=== PATIENT | female | born 1985 | race Caucasian/White ===

== ENCOUNTER → 2020-06-24 11:28 | Outpatient (BNVA) | payer OTHER, SELFPAY | PROVIDERS: Family Provider Family Medicine; Visit Provider Nurse Practitioner Family | DX: Z20.828 Contact with and (suspected) exposure to other viral communicable diseases (principal); J06.9 Acute upper respiratory infection, unspecified | CPT/HCPCS: 87635 ==

== ENCOUNTER 2023-07-08 23:04 | Emergency (ER) | payer OTHER, SELFPAY ==
[2023-07-08 23:29] VITALS: BP 160/81; PULSE 101; RESP 16; BMI 25.0
[2023-07-08 23:41] VITALS: BP 160/81; PULSE 101; RESP 21; O2SAT 98
--- NOTE | 2023-07-08 23:50 | ED_ITS ---
HPI - Abdominal Pain 2 General: Chief Complaint: Abdominal Pain Stated Complaint: abdomen pain, back pain Time Seen by Provider: 07/08/23 23:30 Source: patient and family Mode of arrival: ambulatory Limitations: no limitations History of Present Illness: Patient presents emergency department today for evaluation treatment of right- sided abdominal pain and diarrhea for several days. Patient states the last couple of days she has had multiple episodes of brown loose stool. She complains of pain in the right lower quadrant which she states is sharp in nature. She also reports she feels the pain in her abdomen radiating to her back. Patient has not vomited. She is unaware of any fevers. No others at home are similarly ill. Patient still has her appendix and right ovary. She denies any urinary symptoms including dysuria or hematuria. No issues with urine stream. No vaginal discharge or bleeding. Patient states she did take some ibuprofen today as well as a [place] for her pain. Review of Systems 2 General: Reports: 10 or more systems reviewed and unremarkable except in HPI and below Physical Exam 2 Const: COMMON NORMALS: no acute distress, patient oriented x3 and alert HENMT: COMMON NORMALS: normocephalic, atraumatic, hearing grossly normal bilaterally and moist oral mucous membranes HEAD & SCALP: normocephalic and atraumatic Eye: COMMON NORMALS: Equal, round and reactive pupils present, EOMs intact bilaterally and conjunctivae normal CONJUNCTIVA: Yes conjunctivae normal P UPIL: Yes Equal, round and reactive pupils present Neck/C-Spine: COMMON NORMALS: full ROM and no JVD Lymph: LYMPHATIC: no lymphadenopathy noted Resp: COMMON NORMALS: normal respiratory effort, No retractions, No use of accessory muscles and clear to auscultation bilaterally AUSCULTATION: clear to auscultation bilaterally Cardio: COMMON NORMALS: no JVD, regular rate and regular rhythm RATE: r egular rate RHYTHM: regular rhythm GI: OTHER: Hyperactive bowel sounds throughout. Patient is actually tender in the right upper quadrant without specific tenderness in her right lower quadrant. Abdomen is still soft. : COMMON NORMALS: Yes no CVA tenderness BLADDER/KIDNEY EXAM: Yes no CVA tenderness Back/Pelvis: COMMON NORMALS: no CVA tenderness, no thoracic nor lumbar tenderness and thoraco-lumbar ROM normal Extremity: COMMON NORMALS: normal to inspection, full ROM and capillary refill normal NARRATIVE EXTREMITY EXAM: Patient is able to stand and sit without signs of significant distress. Neuro: COMMON NORMALS: patient oriented x3 SENSORIUM/ORIENTATION: Yes alert Psych: COMMON NORMALS: mental status grossly normal, Normal thought process present, cooperative, normal affect and activity/motor behavior normal T HOUGHT PROCESS: Normal thought process present Skin: COMMON NORMALS: no rashes or lesions noted and no wounds GENERAL SKIN EXAM: no rashes or lesions noted Course 2 Vital Signs: Vital signs: Vital Signs Pulse Rate 94 07/09/23 01:20 Respiratory Rate 18 07/09/23 01:21 Blood Pressure 159/97 07/09/23 01:20 Pulse Oximetry 99 07/09/23 01:21 Oxygen Delivery Me thod Room Air 07/09/23 01:20 MDM - Abdominal Pain Medical Decision Making Lab work today is generally unremarkable. Patient does have some findings of various abnormalities in her urine though none specifically indicating concerns for urinary tract infection. We did proceed on with a CT examination as the patient's workup and physical examination are still relatively vague. There are still potential for appendicitis as a differential so CT over ultrasound was chosen. CT examination was concerning for findings of right-sided hydronephrosis and hydroureter. There is a 6-1/2 cm x 5-1/2 cm cystic structure on the right ovary. It is very likely that this is causing the hydroureter and hydronephrosis. Patient admits she has not seen an SOAKING TANK WORKER in quite some time. We did place an urgent referral through case management for an OB follow-up due to its size and the amount of pain patient is having. Also mention that it is likely causing hydroureter and hydronephrosis on her CT scan. Patient is given a short course of pain medication while we are waiting for follow-up with the SOAKING TANK WORKER. However, patient was given return precautions for any change or worsening in condition including new onset fever, vomiting without ability to tolerate her medications or fluids or severe worsening of her pain. Patient has been verbalized understanding and agreement to treatment plan. Differential Diagnosis Likely abdominal pain; Unlikely acute appendicitis, calculus of kidney, diverticulitis, gastroenteritis, pancreatitis or small bowel obstruction Lab Data 07/08/23 23:49 07/08/23 23:49 Labs/Radiology: Radiology Impressions Abdomen/Pelvis CT 07/09/23 00:14 IMPRESSION: 1. Mild right-sided hydronephrosis and hydroureter down to the level of the pelvis. No distal stone identified. 2. There is a 6.5 x 5.5 cm cystic structure in the right ovary, incompletely assessed on this examination. It is unclear whether this the source of the ureteral obstruction on the right. Neither this cyst nor the hydronephrosis or hydroureter were present on the prior abdominal CT dated 02/05/2019. 3. No bowel obstruction or inflammatory process associated with the bowel. 4. No free air or significant free fluid in the abdomen or pelvis. 5. The appendix images normally. Laboratory Results WBC 9.21 10^3/uL (3.29-11.43) 07/08/23 23:49 RBC 5.43 10^6/uL (3.85-5.65) 07/08/23 23:49 Hgb 15.20 g/dL (11.27-16.99) 07/08/23 23:49 Hct 45.3 % (36-47) 07/08/23 23:49 MCV 83.4 fl (85-98) L 07/08/23 23:49 MCH 28.0 pg (27-33) 07/08/23 23:49 MCHC 33.6 g/dL (30-55) 07/08/23 23:49 RDW 12.0 % (12.1-15.1) L 07/08/23 23:49 Plt Count 271 10^3/cmm (157-399) 07/08/23 23:49 MPV 10.5 fL (7.4-10.4) H 07/08/23 23:49 Neut % (Auto) 60.3 % 07/08/23 23:49 Lymph % (Auto) 28.3 % 07/08/23 23:49 [place] % (Auto) 7.8 % 07/08/23 23:49 Eos % (Auto) 2.7 % 07/08/23 23:49 Baso % (Auto) 0.8 % 07/08/23 23:49 Neut # (Auto) 5.55 10^3/uL (1.8-7.7) 07/08/23 23:49 Lymph # (Auto) 2.6 10^3/uL (0.8-4.8) 07/08/23 23:49 [place] # (Auto) 0.7 10^3/uL (0.2-0.9) 07/08/23 23:49 Eos # (Auto) 0.3 10^3/uL (0.0-0.8) 07/08/23 23:49 Baso # (Auto) 0.1 10^3/uL (0.0-0.1) 07/08/23 23:49 Nucleated RBC % (auto) 0 % 07/08/23 23:49 Nucleated RBCs # 0.0 /100WBC 07/08/23 23:49 Sodium 139 mmol/L (136-145) 07/08/23 23:49 Potassium 4.0 mmol/L (3.5-5.1) 07/08/23 23:49 Chloride 103 mmol/L (98-107) 07/08/23 23:49 Carbon Dioxide 25 mmol/L (22-29) 07/08/23 23:49 Anion Gap 15.0 (5-19) 07/08/23 23:49 BUN 15 mg/dL (6-20) 07/08/23 23:49 Creatinine 0.6 mg/dL (0.5-0.9) 07/08/23 23:49 GFR Calculation 111.9 mL/min (90-130) 07/08/23 23:49 Glucose 103 mg/dL (65-115) 07/08/23 23:49 Calculated Osmolality 289 mOsm/kg (285-295) 07/08/23 23:49 Calcium 9.8 mg/dL (8.5-10.5) 07/08/23 23:49 Total Bilirubin 0.4 mg/dL (0.15-1.2) 07/08/23 23:49 AST 19 U/L (0-32) 07/08/23 23:49 ALT 20 U/L (0-33) 07/08/23 23:49 Alkaline Phosphatase 98 U/L (35-105) 07/08/23 23:49 Total Protein 7.7 g/dL (6.6-8.7) 07/08/23 23:49 Albumin 4.6 g/dL (3.5-5.2) 07/08/23 23:49 Globulin 3.1 g/dL (1.3-4.6) 07/08/23 23:49 Lipase 45 U/L (13-60) 07/08/23 23:49 HCG, Qual Negative (Negative) 07/08/23 23:49 Urine Color Yellow (Yellow) 07/08/23 23:46 Urine Appearance Sl hazy (CLEAR) A 07/08/23 23:46 Urine pH 6 (5-7) 07/08/23 23:46 Ur Specific [place] 1.020 (1.005-1.030) 07/08/23 23:46 Urine Protein Neg (Negative) 07/08/23 23:46 Urine Glucose (UA) Norm (Normal) 07/08/23 23:46 Urine Ketones 1+ (Negative) H 07/08/23 23:46 Urine Blood Trace (Negative) H 07/08/23 23:46 Urine Nitrate Negative (Negative) 07/08/23 23:46 Urine Bilirubin Neg (Negative) 07/08/23 23:46 Urine Urobilinogen 1 mg/dL (Negative) H 07/08/23 23:46 Ur Leukocyte Esterase Negative (Negative) 07/08/23 23:46 Urine RBC 0-4 /hpf (0-2) H 07/08/23 23:46 Urine WBC 0-4 /hpf (0-5) H 07/08/23 23:46 Ur Squamous Epith Cells 5-10 /hpf (0-5) H 07/08/23 23:46 Amorphous Sediment Not Reportable 07/08/23 23:46 Urine Bacteria 1+ /hpf (NONE) H 07/08/23 23:46 Urine Mucus 1+ /hpf 07/08/23 23:46 All radiology interpretation(s) finalized by discharge Discharge Plan Discharge Patient Disposition: Home Clinical Impression: Cyst of right ovary, Hydronephrosis, Hydroureter on right Condition: Stable Prescriptions: New hydrocodone-acetaminophen 5-325 mg tablet 1 tab PO Q6H PRN (Reason: pain) Qty: 14 0RF Discharge Orders: Discharge ED (Routine); Ordered 07/09/23 Ordered By: Anuel Jimenez Referrals: Roman Edmondson MD [Physician] - 1-3 days Discharge Diet: Advance as tolerated Discharge Activity: Resume usual activity Patient Instructions: Ovarian Cyst (ED), Opioid Safety Coding Level of Care Code ED Alarm Security Or Surveillance Monitor for Chg Karla
[2023-07-08 23:55] LABS: Basophils # 0.1 10^3/uL (0.0-0.1); Basophils % 0.8 %; Eosinophils # 0.3 10^3/uL (0.0-0.8); Eosinophils % 2.7 %; Hematocrit 45.3 % (36-47); Lymphocytes # 2.6 10^3/uL (0.8-4.8); Lymphocytes % 28.3 %; Mean Corpuscular HGB Conc 33.6 g/dL (30-55); Mean Corpuscular Volume 83.4 fl (85-98); Mean Platelet Volume 10.5 fL (7.4-10.4); Monocytes # 0.7 10^3/uL (0.2-0.9); Monocytes % 7.8 %; Neutrophils # 5.55 10^3/uL (1.8-7.7); Neutrophils % 60.3 %; Nucleated Red Blood Cells % 0 %; Platelet Count 271 10^3/cmm (157-399); Red Blood Count 5.43 10^6/uL (3.85-5.65); White Blood Count 9.21 10^3/uL (3.29-11.43)
[2023-07-09 00:04] LABS: Add Urine Microscopic? YES
[2023-07-09 00:05] LABS: Bacteria Urine 1+ /hpf; Bilirubin Urine Neg (Negative); Blood Urine Trace (Negative); Glucose Urine UA Norm (Normal); Ketones Urine 1+ (Negative); Leukocyte Esterase Urine Negative (Negative); Mucus Urine 1+ /hpf; Nitrate Urine Negative (Negative); Protein Urine Neg (Negative); RBC Urine 0-4 /hpf (0-2); Urine Appearance SL Hazy (CLEAR); Urine Color Yellow (Yellow); Urobilinogen Urine 1 mg/dL (Negative); WBC Urine 0-4 /hpf (0-5); pH Urine 6 (5-7)
[2023-07-09 00:06] VITALS: BP 160/81; PULSE 99
[2023-07-09 00:10] LABS: Alanine Aminotransferase 20 U/L (0-33); Albumin Level 4.6 g/dL (3.5-5.2); Alkaline Phosphatase 98 U/L (35-105); Aspartate Amino Transferase 19 U/L (0-32); Blood Urea Nitrogen 15 mg/dL (6-20); Calcium 9.8 mg/dL (8.5-10.5); Carbon Dioxide 25 mmol/L (22-29); Chloride 103 mmol/L (98-107); Creatinine Clr Calc Pharmacy 123.2577; Globulin 3.1 g/dL (1.3-4.6); Glomerular Filtration Rate 111.9 mL/min (90-130); Glucose 103 mg/dL (65-115); Lipase 45 U/L (13-60); Osmolality Calculated 289 mOsm/kg (285-295); Sodium 139 mmol/L (136-145); Total Bilirubin 0.4 mg/dL (0.15-1.2); Total Protein 7.7 g/dL (6.6-8.7)
[2023-07-09 00:11] LABS: HCG, Serum Qual Negative (Negative)
--- NOTE | 2023-07-09 00:14 | CTR_ITS ---
PROCEDURE INFORMATION: Exam: CT Abdomen And Pelvis With Contrast Exam date and time: 07/09/2023 12:35 AM Age: 38 years old Clinical indication: Abdominal pain; Localized; Right; Patient HX: RT sided abd pain with diarrhea. Positive for urobili on ua. ; Additional info: RT abdominal pain, diarrhea, pain in RT abdomen, urobili in ua, lfts wnl TECHNIQUE: Imaging protocol: Computed tomography of the abdomen and pelvis with contrast. Radiation optimization: All CT scans at this facility use at least one of these dose optimization techniques: automated exposure control; mA and/or kV adjustment per patient size (includes targeted exams where dose is matched to clinical indication); or iterative reconstruction. Contrast material: OMNI 350; Contrast volume: 100 ml; Contrast route: INTRAVENOUS (IV); COMPARISON: CT abdomen pelvis wo con [id number] 02/05/2019 5:02 PM RADIATION DOSE METRICS: Total DLP (mGy-cm): 647.11 FINDINGS: Liver: Normal. No mass. Gallbladder and bile ducts: Normal. No calcified stones. No ductal dilation. Pancreas: Normal. No ductal dilation. Spleen: Normal. No splenomegaly. Adrenal glands: Normal. No mass. Kidneys and ureters: Mild right-sided hydronephrosis and hydroureter down to the level of the pelvis. No distal stone identified. Stomach and bowel: Unremarkable. No obstruction. No mucosal thickening. Appendix: No evidence of appendicitis. Intraperitoneal space: Unremarkable. No free air. No significant fluid collection. Vasculature: Unremarkable. No abdominal aortic aneurysm. Lymph nodes: Unremarkable. No enlarged lymph nodes. Urinary bladder: Unremarkable as visualized. Reproductive: There is a 6.5 x 5.5 cm cystic structure in the right ovary, incompletely assessed on this examination. It is unclear whether this the source of the ureteral obstruction on the right. Bones/joints: Unremarkable. No acute fracture. Soft tissues: Unremarkable. CT/CT abdomen pelvis w con* [id number] IMPRESSION: 1. Mild right-sided hydronephrosis and hydroureter down to the level of the pelvis. No distal stone identified. 2. There is a 6.5 x 5.5 cm cystic structure in the right ovary, incompletely assessed on this examination. It is unclear whether this the source of the ureteral obstruction on the right. Neither this cyst nor the hydronephrosis or hydroureter were present on the prior abdominal CT dated 02/05/2019. 3. No bowel obstruction or inflammatory process associated with the bowel. 4. No free air or significant free fluid in the abdomen or pelvis. 5. The appendix images normally.
[2023-07-09] MEDS: iohexol 350 mg/mL 500 mL Btl (per mL) IV (00:38)
--- NOTE | 2023-07-09 00:53 | PC.NURSE ---
check writer salesperson gave report to Lidia PETTIT at [id number] patient stable no current complaints or concerns.
[2023-07-09 01:20] VITALS: BP 159/97; PULSE 94; O2SAT 99
[2023-07-09 01:21] VITALS: RESP 18; O2SAT 99
[2023-07-09] MEDS: oxyCODONE-APAP 5-325 mg Tablet 1 TAB PO (01:21)
[2023-07-09 01:42] VITALS: BP 152/78; PULSE 86; O2SAT 97
--- NOTE | 2023-07-13 11:16 | DCPLANNER ---
Message sent to OBLADARIUSN - RT ovarian cyst-hydronephrosis/ ureter
== END 2023-07-09 01:42 | disposition home or self-care (01) ==
PROVIDERS: Emergency Medicine; Emergency Provider Physician Assistant
DX: N83.201 Unspecified ovarian cyst, right side (principal); N13.30 Unspecified hydronephrosis; N13.4 Hydroureter
CPT/HCPCS: 74177; 80053; 81001; 81003; 83690; 84703; 85025; 99285; Q9967

== ENCOUNTER 2023-07-09 17:58 | Observation (INO) | payer OTHER, SELFPAY ==
[2023-07-09 18:01] VITALS: BP 158/108; PULSE 84; RESP 16; TEMP 36.9; O2SAT 97
--- NOTE | 2023-07-09 18:08 | USR_ITS ---
PROCEDURE INFORMATION: Exam: US Nonobstetric Pelvis; Complete Exam date and time: 07/09/2023 6:38 PM Age: 38 years old Clinical indication: Pelvic pain; Additional info: Ovarian cyst TECHNIQUE: Imaging protocol: Transabdominal pelvic nonobstetric ultrasound. Complete exam. Real time ultrasound with image documentation. COMPARISON: CT abdomen pelvis w con* [id number] 07/09/2023 12:35 AM FINDINGS: Uterus: Retroverted uterus measuring 8.2 x 4.1 x 4.9 cm. Endometrium is unremarkable measuring 10 mm in thickness. Right ovary/adnexa: There is a 6.3 x 6.3 x 5.6 cm simple appearing right adnexal cyst. The right ovary measures approximately 1.4 x 1.1 x 2.1 cm with flow appreciated on transabdominal approach. Left ovary/adnexa: The left ovary measures 2.7 x 2.3 x 2.7 cm. Flow is visualized. Intraperitoneal space: No intraperitoneal fluid. US/US pelv w/transvag [id number] IMPRESSION: 1. Large 6.3 cm simple appearing right adnexal cyst. Follow-up industrial relations manager evaluation is recommended. Follow-up pelvic sonography in 12 months is recommended.
[2023-07-09 18:55] LABS: Alanine Aminotransferase 20 U/L (0-33); Albumin Level 4.3 g/dL (3.5-5.2); Alkaline Phosphatase 86 U/L (35-105); Aspartate Amino Transferase 18 U/L (0-32); Blood Urea Nitrogen 12 mg/dL (6-20); Calcium 9.4 mg/dL (8.5-10.5); Carbon Dioxide 23 mmol/L (22-29); Chloride 106 mmol/L (98-107); Glomerular Filtration Rate 80.3 mL/min (90-130); Glucose 116 mg/dL (65-115); Osmolality Calculated 291 mOsm/kg (285-295); Sodium 140 mmol/L (136-145); Total Bilirubin 0.4 mg/dL (0.15-1.2); Total Protein 7.3 g/dL (6.6-8.7)
--- NOTE | 2023-07-09 18:56 | ED_ITS ---
HPI - Abdominal Pain 2 General: Chief Complaint: Abdominal Pain Stated Complaint: dr edmondson sent cyst on ovary R side Time Seen by Provider: 07/09/23 18:14 Source: patient Mode of arrival: ambulatory Limitations: no limitations History of Present Illness: Patient presents emergency department today for evaluation treatment of continued right-sided abdominal pain. I personally saw and evaluated this patient yesterday for similar symptoms. Patient was found to have a large right ovarian cyst with some hydronephrosis and hydroureter. Patient was discharged with pain medication and referral for follow-up with OB. However, patient states that the pain medication is not helping her today and she continues to have right-sided abdominal pain. She has not been vomiting but states she has not eaten very much today. She has not had any change in urinary habits or had any difficulty with urination. Patient reports last hydrocodone was approximately 2 hours ago. Patient's called the hospital today and spoke with Dr. Edmondson-the CONTRACT SERVICEMAN on-call. He recommended they come to the emergency department. Review of Systems 2 General: Reports: 10 or more systems reviewed and unremarkable except in HPI and below Physical Exam 2 Const: COMMON NORMALS: no acute distress, patient oriented x3 and alert O THER: Patient is pleasant, social. She is answering her own history in the room. HENMT: COMMON NORMALS: normocephalic, atraumatic, hearing grossly normal bilaterally and moist oral mucous membranes HEAD & SCALP: normocephalic and atraumatic Eye: COMMON NORMALS: Equal, round and reactive pupils present, EOMs intact bilaterally and conjunctivae normal CONJUNCTIVA: Yes conjunctivae normal P UPIL: Yes Equal, round and reactive pupils present Neck/C-Spine: COMMON NORMALS: full ROM Lymph: LYMPHATIC: no lymphadenopathy noted Resp: COMMON NORMALS: normal respiratory effort, No retractions and No use of accessory muscles Cardio: COMMON NORMALS: regular rate (On monitor) RATE: regular rate (On monitor) GI: OTHER: GI examination not performed at this time as patient is currently in the middle of her ultrasound. Back/Pelvis: COMMON NORMALS: thoraco-lumbar ROM normal Extremity: COMMON NORMALS: normal to inspection, full ROM and capillary refill normal NARRATIVE EXTREMITY EXAM: Independently ambulatory and weightbearing here in the emergency department. Neuro: COMMON NORMALS: patient oriented x3 SENSORIUM/ORIENTATION: Yes alert Psych: COMMON NORMALS: mental status grossly normal, Normal thought process present, cooperative, normal affect and activity/motor behavior normal T HOUGHT PROCESS: Normal thought process present Skin: COMMON NORMALS: no rashes or lesions noted and no wounds GENERAL SKIN EXAM: no rashes or lesions noted Course 2 Vital Signs: Vital signs: Vital Signs Temperature 97.0 F L 07/09/23 23:49 Pulse Rate 56 L 07/10/23 00:19 Respiratory Rate 12 07/10/23 00:19 Blood Pressure 111/77 07/10/23 00:19 Pulse Oximetry 94 07/10/23 00:19 Oxygen Delivery Me thod Room Air 07/10/23 00:19 MDM - Abdominal Pain Medical Decision Making I was notified upon the patient's arrival that they had talked to Dr. Edmondson. The patient's family had indicated admission however, I called and spoke with Dr. Edmondson. He stated that he had not guaranteed their admission and needed further workup. He requested an ultrasound to evaluate for torsion. Ultrasound revealed no signs of torsion. When I called and spoke with Dr. Edmondson again he agreed to come visit the patient at bedside. Patient was given several options including discharge home, inpatient observation, or to the OR for laparoscopy. Patient family admitted they had many concerns and had several questions. I did my best to answer them but encouraged them to speak with the surgeon regarding any procedural questions they may have. Dr. Dalton came back to the room with consent forms as the patient has decided to proceed on with OR laparoscopy. Patient is to remain n.p.o. here in the emergency department. We are calling to assemble the OR team and patient will be taken to the OR for her procedure. Patient indicates she is beginning to feel anxious and is requesting medication for her nerves. I did consult with Dr. Edmondson prior to ordering medication. He indicated patient may have medication and request it be provided here in the ER. Patient was given a 0.5 mg dose of Ativan. Differential Diagnosis Likely abdominal pain; Unlikely acute appendicitis, calculus of kidney, constipation, diverticulitis, endometriosis, gastroenteritis or small bowel obstruction Lab Data 07/09/23 18:18 Labs/Radiology: Radiology Impressions Pelvic/Transvag US 07/09/23 18:08 IMPRESSION: 1. Large 6.3 cm simple appearing right adnexal cyst. Follow-up primer press operator evaluation is recommended. Follow-up pelvic sonography in 12 months is recommended. Laboratory Results Sodium 140 mmol/L (136-145) 07/09/23 18:18 Potassium 4.0 mmol/L (3.5-5.1) 07/09/23 18:18 Chloride 106 mmol/L (98-107) 07/09/23 18:18 Carbon Dioxide 23 mmol/L (22-29) 07/09/23 18:18 Anion Gap 15.0 (5-19) 07/09/23 18:18 BUN 12 mg/dL (6-20) 07/09/23 18:18 Creatinine 0.8 mg/dL (0.5-0.9) 07/09/23 18:18 GFR Calculation 80.3 mL/min (90-130) L 07/09/23 18:18 Glucose 116 mg/dL (65-115) H 07/09/23 18:18 Calculated Osmolality 291 mOsm/kg (285-295) 07/09/23 18:18 Calcium 9.4 mg/dL (8.5-10.5) 07/09/23 18:18 Total Bilirubin 0.4 mg/dL (0.15-1.2) 07/09/23 18:18 AST 18 U/L (0-32) 07/09/23 18:18 ALT 20 U/L (0-33) 07/09/23 18:18 Alkaline Phosphatase 86 U/L (35-105) 07/09/23 18:18 Total Protein 7.3 g/dL (6.6-8.7) 07/09/23 18:18 Albumin 4.3 g/dL (3.5-5.2) 07/09/23 18:18 Globulin 3.0 g/dL (1.3-4.6) 07/09/23 18:18 Urine Color Yellow (Yellow) 07/09/23 18:58 Urine Appearance Clear (CLEAR) 07/09/23 18:58 Urine pH 7 (5-7) 07/09/23 18:58 Ur Specific [place] 1.005 (1.005-1.030) 07/09/23 18:58 Urine Protein Neg (Negative) 07/09/23 18:58 Urine Glucose (UA) Norm (Normal) 07/09/23 18:58 Urine Ketones Negative (Negative) 07/09/23 18:58 Urine Blood Neg (Negative) 07/09/23 18:58 Urine Nitrate Negative (Negative) 07/09/23 18:58 Urine Bilirubin Neg (Negative) 07/09/23 18:58 Urine Urobilinogen Norm mg/dL (Negative) 07/09/23 18:58 Ur Leukocyte Esterase Negative (Negative) 07/09/23 18:58 All radiology interpretation(s) finalized by discharge Discharge Plan Discharge Patient Disposition: Admitted As Inpatient Admit Provider: Roman Edmondson Clinical Impression: Cyst of right ovary Condition: Stable Coding Level of Care Code ED Environmental Educator for Keira Acosta
[2023-07-09 19:11] LABS: Add Urine Microscopic? NO; Charge for UA Resulting for Rev
[2023-07-09 19:15] LABS: Bilirubin Urine Neg (Negative); Blood Urine Neg (Negative); Glucose Urine UA Norm (Normal); Ketones Urine Negative (Negative); Nitrate Urine Negative (Negative); Protein Urine Neg (Negative); Specific Gravity, Urine 1.005 (1.005-1.030); Urine Appearance Clear (CLEAR); Urine Color Yellow (Yellow); pH Urine 7 (5-7)
[2023-07-09 19:16] LABS: Leukocyte Esterase Urine Negative (Negative); Urobilinogen Urine Norm (Negative)
[2023-07-09] MEDS: ketorolac 30 mg/mL INJ IVP (19:27)
[2023-07-09] MEDS: sodium chloride 0.9% 1,000 ML 999 ML IV (19:28)
[2023-07-09 21:48] VITALS: BP 158/108; PULSE 84; RESP 16; TEMP 36.9; O2SAT 97
--- NOTE | 2023-07-09 21:51 | P.HP_ITS ---
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 had vasectomy Periods normal and regular Noted RLQ pain for several months, mild and intermittent Worsened over past week Became very intense yesterday Was seen in ER yesterday Discharge home However, pain continued, described as ?severe?, unable to sleep Returns today c/o extreme pain in RLQ No fever, chills, nausea, vomiting Reports some diarrhea two days ago, but none since No dysuria States pain radiates to low back Medications/Allergies Home Medications Medication Instructions Recorded Confirmed Last Taken Type hydrocodone 5 mg-acetaminophen 325 1 tab PO Q6H PRN pain #14 tabs 07/09/23 Unknown Rx mg tablet Allergies Allergy/AdvReac Type Severity Reaction Status Date / Time clindamycin Allergy unknown Verified 07/09/23 18:07 Vitals/I&O/Wt Last Vital Signs Temp 98.5 F 07/09/23 21:48 Pulse 84 07/09/23 21:48 Resp 16 07/09/23 21:48 BP 158/108 07/09/23 21:48 Pulse Ox 97 07/09/23 21:48 O2 Del Method Room Air 07/09/23 18:01 Weight last 48 hrs Weight 160 lb Physical Exam 2 Narrative: Comfortable, in no acute distress VS afebrile, normal HEENT: normal Lungs: clear Cor: RRR Abd: soft, nondistended Mild-moderate RLQ tenderness No rebound Ext: normal Data 07/09/23 18:18 Results Labs OB ([facility]): 2 Hct 45.3 % (36-47) 07/08/23 Hgb 15.20 g/dL (11.27-16.99) 07/08/23 Plt Count 271 10^3/cmm (157-399) 07/08/23 HCG, Qual Negative (Negative) 07/08/23 WATER SYSTEM OPERATOR Ultrasound Pelvic sono 6 cm right ovarian simple-appearing cyst No evidence of torsion A&P Assessment and plan (1) Cyst of right ovary: RLQ pain 6 cm right ovarian cyst Right hydroureter and hydronephrosis Explained to patient that patient?s pain complaint is not consistent with physical exam and finding of simple ov cyst Explained that the ov cyst usually resolves if given time However, if patient is in severe pain, option is available to perform laparoscopy, possible cystectomy Options discussed with patient include: Expectant management Admit overnight and see how pain is tomorrow Laparoscopy, possible cystectomy, possible salpingo-oophorectomy, possible open Laparotomy Along with risks which may include, but not limited to, infection; bleeding; injury To internal organs, anesthesia, blood transfusions Patient wants laparoscopy, possible cystectomy, possible salpingo-oophorectomy, possible open Laparotomy Informed consent signed Plan proceed with surgery Attestations 2 Medical Necessity Statement*: patient with RLQ pain, ovarian cyst; plan laparoscopy Coding Level of Care Code Acute Code for [facility] Fwd Diagnoses Cyst of right ovary N83.201 Time Spent (min) 60
--- NOTE | 2023-07-09 22:01 | P.ANESASSM_ITS ---
Pre-Anesthetic Assessment Height/Weight: Height 1.65 m Weight 72.575 kg Temp Pulse Resp BP Pulse Ox O2 Del Method 98.5 F 84 16 158/108 97 Room Air 07/09/23 21:48 07/09/23 21:48 07/09/23 21:48 07/09/23 21:48 07/09/23 21:48 07/09/23 18:01 Operation Date: 07/09/23 22:30 Proposed Procedures p Laparoscopic Ovarian Cystectomy possible open(Right) - Roman Edmondson MD Familial anesthetic complications: None Was Beta Brayden taken within 24 hours: Yes Was Clonidine taken within 24 hours: N/A Last intake: meatballs at 1400 Social No alcohol and No tobacco Exam alert, oriented x 3, clear to auscultation bilaterally and regular rate & rhythm Airway Mallampati: Class I Dentition: full CV/HEM Arrythmia (tachycardia on metoprolol) and Hypertension Anesthetic Plan ASA status: 2 Anesthesia: General Risk of > 500 ml blood loss (7ml/kg in children): No Medications/Allergies Home Medications Medication Instructions Recorded Confirmed Last Taken Type hydrocodone 5 mg-acetaminophen 325 1 tab PO Q6H PRN pain #14 tabs 07/09/23 Unknown Rx mg tablet Allergies Allergy/AdvReac Type Severity Reaction Status Date / Time clindamycin Allergy unknown Verified 07/09/23 18:07 Data Anesthesia 07/09/23 18:18 BMP 07/09/23 18:18 Sodium 140 Potassium 4.0 Chloride 106 Carbon Dioxide 23 BUN 12 Creatinine 0.8 Glucose 116 H Calcium 9.4 Liver Function 07/09/23 Range/Units 18:18 Total Bilirubin 0.4 (0.15-1.2) mg/dL AST 18 (0-32) U/L ALT 20 (0-33) U/L Alkaline Phosphatase 86 (35-105) U/L Albumin 4.3 (3.5-5.2) g/dL Urine 07/09/23 Range/Units 18:58 Urine Color Yellow (Yellow) Urine Appearance Clear (CLEAR) Urine pH 7 (5-7) Ur Specific [place] 1.005 (1.005-1.030) Urine Protein Neg (Negative) Urine Glucose (UA) Norm (Normal) Urine Ketones Negative (Negative) Urine Nitrate Negative (Negative) Urine Bilirubin Neg (Negative) Ur Leukocyte Esterase Negative (Negative) Cardiac Studies: 2 No Data to Display
[2023-07-09 22:04] VITALS: BP 142/109; PULSE 93; RESP 18; TEMP 36.7; O2SAT 99
--- NOTE | 2023-07-09 23:05 | P.OP_ITS ---
Operative Report Date of procedure: July 09, 2023 Pre-op diagnosis: Pelvic pain Right ovarian simple cyst Post-op diagnosis: Pelvic pain 6-7 cm right ovarian complex cyst involving right ovary and tube Post-op findings: Normal uterus Presence of a 6-7 cm right complex cyst involving right ovary and tube Occupying right ovarian fossa Normal left ovary and tube Otherwise normal pelvis Procedure done: Laparoscopy Laparoscopic right salpingo-oophorectomy Implants: none Specimens removed/disposition: right ovary and tube Surgeon: Roman Edmondson MD Anesthesia: General Estimated blood loss (mL): 5 Complications: none Condition: stable Disposition: floor Brief History: 38 y.o. presented to ER twice in one day c/o severe right pelvic pain. On CT and pelvic sono, a 6 cm right ovarian cyst was described. Procedure: Informed consent obtained. The patient was taken to the OR and placed supine on the table. General endotracheal anesthesia was given. The patient was then placed in dorsolithotomy position. The abdomen and perineum were prepped and draped in usual fashion. A glover catheter was placed. A 5 mm subumbilical skin incision was made. A laparoscopic trocar with sheath was inserted into the peritoneal cavity under direct vision with the laparoscope. Pneumoperitoneum was achieved. Two separate 5 mm incisions were made in the right and left mid- abdominal quadrants under direct visualization to accommodate additional trocars and sheaths. The pelvis was explored with the laparoscope. Normal uterus, left ovary and t ube were seen. No abnormalities were seen in the utero-ovarian ligaments, broad ligaments, anterior cul-de-sac and pelvic side-benjamin. The left ovary was seen to be normal. Involving the right ovary and the right fallopian tube was a 6-7 cm complex-appearing cyst with internal hemorrhage. A Ligasure device was then used to excise the right ovary and tube. During manipulation, the ovarian cyst ruptured. Blood and fluid was suctioned from the pelvis. The subumbilical skin incision was extended to 10 mm using a scalpel to accommodate a 10 mm trocar. An endopouch was used to remove the ovary and tube from the abdominal cavity. This was sent to pathology. No bleeding was seen The liver edge was visualized and was normal. The remainder of the pelvis was again examined and seen to be normal. All instruments were then removed from the abdominal cavity after the pneumoperitoneum was allowed to escape. The subumbilical fascia was closed with a stitch of O-Vicryl The skin incisions were closed with 4-O monocryl. Dermabond was applied. The glover catheter was removed. There was no bleeding from the cervix. The patient was then awakened and taken to the recovery room in good condition. Postop condition stable. EBL 5 cc. There were no complications. Sponge and instrument counts were correct x two
[2023-07-09 23:49] VITALS: BP 90/51; PULSE 55; RESP 12; TEMP 36.1; O2SAT 96
[2023-07-09 23:54] VITALS: BP 101/68; PULSE 51; RESP 11; O2SAT 96
[2023-07-09 23:59] VITALS: BP 102/70; PULSE 52; RESP 12; O2SAT 96
[2023-07-10] VITALS (22 sets, daily range): BP systolic 94–123; BP diastolic 52–78; PULSE 52–153; RESP 12–23; TEMP 36.1–37.6; O2SAT 92–97; BMI 26.6
[2023-07-10] MEDS: ondansetron 2 mg/ML SDV 2 mL 4 MG IVP ×2 (00:19→07:39)
--- NOTE | 2023-07-10 00:55 | ANE.PACU2 ---
Inpatient post-anesthesia follow up: Airway intact: Yes Vital signs: Temperature 98.6 F Pulse Rate 108 Respiratory Rate 20 Blood Pressure 103/72 Pulse Oximetry 93 Oxygen Delivery Me thod Room Air Oxygen Flow Rate Fraction of Inspir ed Oxygen Hydration adequate: Yes Nausea and vomiting: No Pain level: 1 Mental status: Baseline
[2023-07-10] MEDS: oxyCODONE-APAP 10-325 mg Tablet 1 TAB PO ×4 (02:17→17:40)
[2023-07-10] MEDS: ibuprofen 800 mg tablet PO ×3 (02:18→15:01)
[2023-07-10] MEDS: simethicone 80 mg Chew PO ×4 (04:17→17:41)
[2023-07-10] MEDS: morphine 4 mg/mL SDV 1 mL 2 MG IVP (10:20)
--- NOTE | 2023-07-10 10:40 | PC.NURSE ---
PT COMPLAINING OF PAIN, DENIES PASSING GAS YET, SO THIS TELEGRAPH MECHANIC TOLD HER THAT IT WAS NOT TIME YET FOR MORE PAIN PILLS AND ENCOURAGED HER TO GET UP AND PEE AND THEN WALK IN HALLWAY, SHE DID NOT WANT TO DO EITHER AND THIS TELEGRAPH MECHANIC TALKED TO HER AND SPOUSE OF WAYS TO RELIEVE GAS PAINS AND THAT WAS TO KEEP BLADDER EMPTY BY GOING EVERY 2 HOURS EVEN IF SHE DID NOT FEEL LIKE SHE NEEDED TOO WELL GETTING UP AND MOVING AROUND TO SEE IF SHE COULD PASS GAS. TOLD HER SINCE PAIN MEDS NOT HELPING THAT IT WAS PROBABLY GAS PAIN AND NOTHING WILL NOT HELP UNTIL SHE STARTS PASSING IT. SO PATIENT DID GET UP AND DID PEE AND THEN SHE DID DO TO LAPS WITH ALOT OF ENCOURAGEMENT. PATIENT BACK TO ROOM AND IS SITTING UP IN CHAIR. THIS TELEGRAPH MECHANIC DID GIVE HER 2 MG MORPHINE TO SEE IF WE COULD GET PAIN BAREABLE FOR HER.
--- NOTE | 2023-07-10 13:52 | PC.NURSE ---
1330 WENT INTO ROOM TO SEE IF SHE HAD BEEN UP TO BATHROOM AND WALK. SHE HAD BEEN UP TO BATHROOM BUT HAD NOT WALKED IN HALLWAY. TOLD HER THAT SHE NEEDED TO GET UP AND WALK IN [place] AND MAKE AT LEAST 2 LAPS. TOLD THEM THAT SHE HAS DISCHARGE ORDERS TO GO HOME AND THAT DR. ROMERO SENT IN SCRIPT TO [facility] AND HE SAID THAT HE WOULD GO GET THEM. TOLD HIM TO GET THEM SOMETHING TO EAT IF SHE WANTS SOMETHING. TOLD HER THAT SHE COULD LET PAIN MEDS WORK A LITTLE BIT BUT SHE NEEDS TO BE UP WALKING BY 2:30, PATIENT VOICES UNDERSTANDING.
--- NOTE | 2023-07-10 15:46 | PC.NURSE ---
PT INSTRUCTIONS GIVEN AND GOAL SET FOR 1500 AND PATIENT WAS INSTRUCTED ON HOW TO DO IT AND SHE WAS UNABLE TO EVEN REACH 200 SAT WITH HER AND SPOUSE FOR 15 MINUTES AND SHE STILL WAS UNABLE TO ACHIEVE GOAL OF 1500 THIS DIRECTOR OF ACQUISITION MARKETING EVEN LOWERED IT TO 1000 AND STILL UNABLE TO REACH GOAL, PATIENT NOT WANTED TO TAKE A DEEP BREATHE. THIS DIRECTOR OF ACQUISITION MARKETING TALKED WITH HER AND HER SPOUSE ABOUT GETTING PNEUMONIA IF SHE DOES NOT DEEP BREATHE AND COUGH AND DO THIS INCENTIVE SPIROMETER INSTRUCTED AND SHE VOICES UNDERSTANDING. AGAIN ENCOURAGED HER TO WALK AND SHE DOES NOT WANT TO RIGHT NOW. PATIENT DOES HAVE ACTIVE BOWEL SOUNDS BUT DENIES FLATUS AT THIS TIME.
[2023-07-10] MEDS: bisacodyl 10 mg Supp PR (16:33)
== END 2023-07-10 19:18 | disposition home or self-care (01) ==
LOC: ER 18:59 → OR 20:56 → OBGYN 23:21
PROVIDERS: Emergency Medicine; Admitting Provider Obstetrics & Gynecology; Emergency Provider Physician Assistant; PCP Obstetrics & Gynecology; Visit Provider Obstetrics & Gynecology
PROC: (CPT 58661; principal; 2023-07-09 22:30)
DX: N83.291 Other ovarian cyst, right side (principal)
CPT/HCPCS: 58661; 36415; 76830; 76856; 80053; 81003; 88305; 96361; 96374; 99285; G0378; J0330; J1100; J1170; J1885; J2270; J2405; J2704; J2710; J3010; J3490; J7030

== ENCOUNTER 2023-07-12 09:15 | Inpatient (IN) | payer OTHER, SELFPAY ==
[2023-07-12] VITALS (12 sets, daily range): BP systolic 108–128; BP diastolic 72–89; PULSE 89–127; RESP 16–22; TEMP 36.4–37.2; O2SAT 91–98; BMI 25.7; BMI 29.6
--- NOTE | 2023-07-12 09:55 | CT_ITS ---
WS: [id number] CT ABDOMEN PELVIS TECHNIQUE: Contrast-enhanced CT of the abdomen and pelvis with coronal and sagittal reformatted image s. CLINICAL INFORMATION: abd pain COMPARISON: CT 07/09/2023 DLP: 765.[address] scans at [facility] use at least one of these dose optimization techniques: automated e xposure control; mA and/or kV adjustment per patient size (includes targeted exams where dose is matc hed to clinical indication); or iterative reconstruction. FINDINGS: Interval resection of the previously described RIGHT ovarian cystic lesion. Moderate amount of free a ir in the abdomen and layering in the upper abdomen likely postoperative. Small amount of subcutaneou s in the LEFT inguinal canal and LEFT abdominal wall. Small amount of air extending along the umbilic al incision. Moderate amount of free fluid in the pelvis and cul-de-sac likely postoperative. Previously described RIGHT hydronephrosis has resolved. No hydronephrosis in either kidney today. Hyd ropic fluid distended gallbladder is new compared to previous. Subsegmental atelectasis in the lung b ases is new compared to previous. Fluid distended stomach with air-fluid level. Sigmoid diverticulosi s. Mild transverse colon and RIGHT colon constipation. No evidence of high-grade obstruction. Air-flu id collection in the anterior abdomen measuring 5.5 x 3.4 cm. This contains only a small amount of fl uid and mostly air. Recommend follow-up to resolution. Retroverted uterus. Bladder is decompressed anteriorly. Normal hepatic parenchymal enhancement. Nidhi l portal vein and splenic vein. Normal spleen. Normal pancreatic parenchymal enhancement. Small bilat eral renal cysts. Adrenal glands are normal. Normal caliber abdominal aorta. IMPRESSION: 1. Recent postoperative changes RIGHT ovarian cystic lesion. 2. Moderate amount of scattered free air and layering free air in the ventral abdomen likely postope rative. Subcutaneous air within the LEFT abdominal wall extending to the LEFT inguinal region. 3. Layering air-fluid collection in the anterior abdomen measuring 5.5 x 3.4 cm. This contains a sma ll amount of fluid and predominantly air. 4. Moderate amount of free fluid in the pelvis and cul-de-sac. Retroverted uterus. 5. Bladder is decompressed anteriorly. 6. Previously described right-sided hydronephrosis has resolved. Recommend correlation with renal fu nction. 7. Hydropic fluid distended gallbladder. 8. Subsegmental ectasis in the lung bases is new compared to previous. 9. Air-fluid level in the stomach.
[2023-07-12 10:29] LABS: Basophils # 0.1 10^3/uL (0.0-0.1); Basophils % 0.5 %; Eosinophils # 0.1 10^3/uL (0.0-0.8); Eosinophils % 0.6 %; Hematocrit 41.7 % (36-47); Lymphocytes # 0.6 10^3/uL (0.8-4.8); Lymphocytes % 3.2 %; Mean Corpuscular HGB Conc 33.6 g/dL (30-55); Mean Corpuscular Hemoglobin 28.3 pg (27-33); Mean Corpuscular Volume 84.2 fl (85-98); Mean Platelet Volume 11.3 fL (7.4-10.4); Monocytes # 0.5 10^3/uL (0.2-0.9); Monocytes % 2.5 %; Neutrophils # 18.29 10^3/uL (1.8-7.7); Neutrophils % 92.7 %; Nucleated Red Blood Cells % 0 %; Platelet Count 174 10^3/cmm (157-399); Red Blood Count 4.95 10^6/uL (3.85-5.65); Red Cell Distribution Width 12.8 % (12.1-15.1); White Blood Count 19.73 10^3/uL (3.29-11.43)
[2023-07-12] MEDS: morphine 4 mg/mL SDV 1 mL IVP (10:33)
[2023-07-12] MEDS: ondansetron 2 mg/ML SDV 2 mL 4 MG IVP (10:33)
--- NOTE | 2023-07-12 10:46 | ED_ITS ---
HPI - Abdominal Pain 2 General: Chief Complaint: Abdominal Pain Stated Complaint: abd pain Time Seen by Provider: 07/12/23 10:08 Source: patient Mode of arrival: ambulatory Limitations: no limitations History of Present Illness: 38-year-old female with a head surgery o yasmeen the weekend for an ovarian cyst states that she has had increasing diffuse pain to her abdomen with low-grade fevers. Rates the pain an 8 out of 10 she denies any worsening improving factors. Associated Symptoms: Denies chills, diarrhea, dysuria, fever(s), nausea and vomiting Review of Systems 2 Const: Denies: fever(s), chills, body aches or change in appetite Eyes: Denies: eye discomfort ENMT: Denies: throat pain or dental pain Card: Denies: chest pain Resp: Denies: dyspnea GI: Reports: abdominal pain; Denies: nausea, vomiting or diarrhea : Denies: dysuria Musc: Denies: neck pain or back pain Skin/Breast: Denies: rash Neuro: Denies: headache(s) PFSH ED 2 PFSH: Surgical History (Updated 07/12/23 @ 13:50 by Edie Phelan MD) Status post unilateral salpingo-oophorectomy (07/09/23) Status post laparoscopy (07/09/23) Family History Grandmother Hypertension Diabetes Grandfather Diabetes Denies family history of Colon cancer Ovarian cancer Prostate cancer Heart disease Hypercholesteremia Breast cancer Uterine cancer Thyroid disease Stroke Physical Exam 2 Const: COMMON NORMALS: no acute distress, patient oriented x3 and healthy appearing HENMT: COMMON NORMALS: normocephalic and atraumatic HEAD & SCALP: n ormocephalic and atraumatic Eye: COMMON NORMALS: Equal, round and reactive pupils present and EOMs intact bilaterally PUPIL: Yes Equal, round and reactive pupils present Neck/C-Spine: COMMON NORMALS: full ROM and supple Chest: COMMONS NORMALS: normal inspection of the chest and normal palpation of entire chest wall Resp: COMMON NORMALS: normal respiratory effort, No retractions, No use of accessory muscles and clear to auscultation bilaterally AUSCULTATION: clear to auscultation bilaterally Cardio: COMMON NORMALS: regular rate, regular rhythm and No murmurs present (Cardio) RATE: regular rate RHYTHM: regular rhythm GI: COMMON NORMALS: Normal to inspection, nondistended, normoactive bowel sounds present, Soft to palpation and no masses PALPATION: Yes Soft to palpation OTHER: diffuse tenderness Extremity: COMMON NORMALS: normal to inspection and full ROM Neuro: COMMON NORMALS: patient oriented x3, moves all extremities and no focal motor deficits Psych: COMMON NORMALS: mental status grossly normal, Normal thought process present and cooperative THOUGHT PROCESS: Normal thought process present Skin: COMMON NORMALS: no rashes or lesions noted and no wounds GENERAL SKIN EXAM: no rashes or lesions noted Course 2 Vital Signs: Vital signs: Vital Signs Temperature 97.6 F 07/12/23 09:26 Pulse Rate 106 H 07/12/23 12:07 Respiratory Rate 18 07/12/23 12:07 Blood Pressure 115/89 07/12/23 12:07 Pulse Oximetry 94 07/12/23 12:07 Oxygen Delivery Me thod Room Air 07/12/23 10:22 MDM - Abdominal Pain Medical Decision Making Patient presents here with abdominal pain is likely postop pain CT showed no acute findings does have a possible pneumonia along with acute kidney injury patient was seen in the ER by Dr. Edmondson who is admitting for observation and also consult to the hospitalist as well. Medical Records I reviewed the patient's medical records. Lab Data I reviewed the patient's lab results. 07/12/23 10:15 07/12/23 10:15 Labs/Radiology: Laboratory Results WBC 19.73 10^3/uL (3.29-11.43) H 07/12/23 10:15 RBC 4.95 10^6/uL (3.85-5.65) 07/12/23 10:15 Hgb 14.00 g/dL (11.27-16.99) 07/12/23 10:15 Hct 41.7 % (36-47) 07/12/23 10:15 MCV 84.2 fl (85-98) L 07/12/23 10:15 MCH 28.3 pg (27-33) 07/12/23 10:15 MCHC 33.6 g/dL (30-55) 07/12/23 10:15 RDW 12.8 % (12.1-15.1) 07/12/23 10:15 Plt Count 174 10^3/cmm (157-399) 07/12/23 10:15 MPV 11.3 fL (7.4-10.4) H 07/12/23 10:15 Neut % (Auto) 92.7 % 07/12/23 10:15 Lymph % (Auto) 3.2 % 07/12/23 10:15 [place] % (Auto) 2.5 % 07/12/23 10:15 Eos % (Auto) 0.6 % 07/12/23 10:15 Baso % (Auto) 0.5 % 07/12/23 10:15 Neut # (Auto) 18.29 10^3/uL (1.8-7.7) H 07/12/23 10:15 Lymph # (Auto) 0.6 10^3/uL (0.8-4.8) L 07/12/23 10:15 [place] # (Auto) 0.5 10^3/uL (0.2-0.9) 07/12/23 10:15 Eos # (Auto) 0.1 10^3/uL (0.0-0.8) 07/12/23 10:15 Baso # (Auto) 0.1 10^3/uL (0.0-0.1) 07/12/23 10:15 Nucleated RBC % (auto) 0 % 07/12/23 10:15 Nucleated RBCs # 0.0 /100WBC 07/12/23 10:15 Sodium 132 mmol/L (136-145) L 07/12/23 10:15 Potassium 4.0 mmol/L (3.5-5.1) 07/12/23 10:15 Chloride 95 mmol/L (98-107) L 07/12/23 10:15 Carbon Dioxide 24 mmol/L (22-29) 07/12/23 10:15 Anion Gap 17.0 (5-19) 07/12/23 10:15 BUN 52 mg/dL (6-20) H 07/12/23 10:15 Creatinine 2.1 mg/dL (0.5-0.9) H 07/12/23 10:15 GFR Calculation 26.4 mL/min (90-130) L 07/12/23 10:15 Glucose 107 mg/dL (65-115) 07/12/23 10:15 Calculated Osmolality 289 mOsm/kg (285-295) 07/12/23 10:15 Calcium 10.2 mg/dL (8.5-10.5) 07/12/23 10:15 Total Bilirubin 0.9 mg/dL (0.15-1.2) 07/12/23 10:15 AST 23 U/L (0-32) 07/12/23 10:15 ALT 13 U/L (0-33) 07/12/23 10:15 Alkaline Phosphatase 116 U/L (35-105) H 07/12/23 10:15 Total Protein 7.9 g/dL (6.6-8.7) 07/12/23 10:15 Albumin 3.9 g/dL (3.5-5.2) 07/12/23 10:15 Globulin 4.0 g/dL (1.3-4.6) 07/12/23 10:15 Lipase 15 U/L (13-60) 07/12/23 10:15 Urine Color Dark yellow (Yellow) 07/12/23 10:15 Urine Appearance Sl hazy (CLEAR) A 07/12/23 10:15 Urine pH 5 (5-7) 07/12/23 10:15 Ur Specific Manson 1.020 (1.005-1.030) 07/12/23 10:15 Urine Protein Trace (Negative) 07/12/23 10:15 Urine Glucose (UA) Norm (Normal) 07/12/23 10:15 Urine Ketones Negative (Negative) 07/12/23 10:15 Urine Blood 3+ (Negative) H 07/12/23 10:15 Urine Nitrate Negative (Negative) 07/12/23 10:15 Urine Bilirubin Neg (Negative) 07/12/23 10:15 Urine Urobilinogen Norm mg/dL (Negative) 07/12/23 10:15 Ur Leukocyte Esterase Negative (Negative) 07/12/23 10:15 Urine RBC 5-10 /hpf (0-2) H 07/12/23 10:15 Urine WBC 15-25 /hpf (0-5) H 07/12/23 10:15 Ur Squamous Epith Cells 0-4 /hpf (0-5) H 07/12/23 10:15 Ur Transition Epith Cell 0-4 /hpf 07/12/23 10:15 Amorphous Sediment Trace /hpf 07/12/23 10:15 Urine Bacteria 1+ /hpf (NONE) H 07/12/23 10:15 Fine Granular Casts 0-4 /lpf H 07/12/23 10:15 RBC Casts 0-4 /lpf 07/12/23 10:15 Other Casts Wbc cast 15-25 /lpf 07/12/23 10:15 Urine Mucus 1+ /hpf 07/12/23 10:15 All radiology interpretation(s) finalized by discharge Discharge Plan Discharge Patient Disposition: Admitted As Inpatient Clinical Impression: Acute postoperative abdominal pain, Pneumonia, Acute kidney injury Condition: Stable Prescriptions: No Action oxycodone-acetaminophen [Percocet] 5-325 mg tablet 1 tab PO Q8H PRN (Reason: pain) Qty: 30 0RF hydrocodone-acetaminophen 5-325 mg tablet 1 tab PO Q6H PRN (Reason: pain) Qty: 14 0RF metoprolol succinate 50 mg tablet extended release 24 hr 50 mg PO BID Referrals: Roman Edmondson MD [Primary Care Provider] - Coding Level of Care Code ED Chief Of Production for Keira Acosta
[2023-07-12 10:47] LABS: Alanine Aminotransferase 13 U/L (0-33); Albumin Level 3.9 g/dL (3.5-5.2); Alkaline Phosphatase 116 U/L (35-105); Aspartate Amino Transferase 23 U/L (0-32); Blood Urea Nitrogen 52 mg/dL (6-20); Calcium 10.2 mg/dL (8.5-10.5); Carbon Dioxide 24 mmol/L (22-29); Chloride 95 mmol/L (98-107); Glomerular Filtration Rate 26.4 mL/min (90-130); Glucose 107 mg/dL (65-115); Lipase 15 U/L (13-60); Osmolality Calculated 289 mOsm/kg (285-295); Sodium 132 mmol/L (136-145); Total Bilirubin 0.9 mg/dL (0.15-1.2); Total Protein 7.9 g/dL (6.6-8.7)
[2023-07-12] MEDS: iohexol 350 mg/mL 500 mL Btl (per mL) IV (10:47)
[2023-07-12 10:51] LABS: Add Urine Microscopic? YES; Bilirubin Urine Neg (Negative); Blood Urine 3+ (Negative); Glucose Urine UA Norm (Normal); Ketones Urine Negative (Negative); Leukocyte Esterase Urine Negative (Negative); Nitrate Urine Negative (Negative); Protein Urine Trace (Negative); Urine Appearance SL Hazy (CLEAR); Urine Color Dark Yellow (Yellow); Urobilinogen Urine Norm (Negative); pH Urine 5 (5-7)
[2023-07-12] MEDS: sodium chloride 0.9% 1,000 ML 999 ML IV (11:01)
[2023-07-12 11:07] LABS: Add Urine Culture? Yes; Amorphous Sediment Urine TRACE /hpf; Bacteria Urine 1+ /hpf; Fine Granular Casts Urine 0-4 /lpf; Mucus Urine 1+ /hpf; Red Blood Cell Casts Urine 0-4 /lpf; Squamous Epithelial Cell Urine 0-4 /hpf (0-5); Transitional Epi Cells Urine 0-4 /hpf; WBC Urine 15-25 /hpf (0-5)
[2023-07-12 11:14] LABS: Slide Review Slide Review Perform
[2023-07-12] MEDS: HYDROmorphone 1 mg/mL INJ 1 mL IVP ×3 (12:05→22:36)
--- NOTE | 2023-07-12 12:16 | XR_ITS ---
WS: [id number] PORTABLE CHEST HISTORY: fever COMPARISON: 04/22/2017 Lung volumes are decreased. Subsegmental atelectasis at the lung bases. No dense consolidation or pne umonia. No pleural effusion or pneumothorax. Bilateral lower lobe bronchial thickening. Cardiac size: Normal. Mediastinum/Aorta: Normal mediastinum. No osseous abnormality seen. IMPRESSION: 1. Subsegmental bibasilar areas of atelectasis. 2. Mild bronchial wall thickening centrally extending into the lower lung mac. Consistent with br onchitis.
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
[2023-07-12] MEDS: cefTRIAXone 1,000 MG in sodium chloride 0.9% (plus) 50 ML 100 MG IV (13:55)
[2023-07-12] MEDS: azithromycin 500 MG in sodium chloride 0.9% 250 ML 250 MG IV (14:53)
--- NOTE | 2023-07-12 17:02 | PC.PHAR ---
PHARMACY VANCOMYCIN TO DOSE Vanco Initial Dosing Patient Information Sex F M/F Last Name CLEMENTINA AGE 38 years First Name ANGIE Ht 65 inches : 1985 ABW 70.307 kg Location: ED-9 IBW 57 kg If loading dose given: DW 70.307 kg Loading DOSE: 1250 mg SCr 2.1 mg/dl This Dose = 17.8 mg/kg CrCl 32.7 ml/min 1st dose Cmax: 23.3 mcg/ml Vd 52.91406 liters Time elapsed: 36.0 hrs Ke 0.032 hrs-1 Serum Conc. = 7.5 mcg/ml t1/2 22 hrs Hrs until 20 mcg/ml 5.9 hrs Hrs until 15 mcg/ml 15.0 hours Hrs until 10 mcg/ml 27.9 hours Dose Tau (Freq) Levels expected Standard 1250 36 Cmax 33.9 Targets 17.78 33.0 Cpeak 32.8 25 to 40 mg/kg hours Cmin 11.6 10 to 20
[2023-07-12] MEDS: bisacodyl 5 mg Tablet 10 MG PO (17:16)
[2023-07-12] MEDS: pantoprazole 40 mg SDV IVP (17:18)
[2023-07-12] MEDS: sodium chloride 0.9% 1,000 ML 150 ML IV (17:23)
[2023-07-12] MEDS: levofloxacin-dextrose 5 % 750 MG/150 ML PREMIX 100 MG IV (17:23)
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
[2023-07-12] MEDS: vancomycin 1,250 MG/250 ML PIGGYBACK 250 MG IV (18:24)
[2023-07-12] MEDS: sennosides-docusate Tablet 1 TAB PO (18:34)
--- NOTE | 2023-07-12 19:58 | PC.NURSE ---
During shift assessment pt was noted to become very itchy and face was becoming red and blotchy. The pt has a hx of allergy to mycins. There was an order paced for her to receive IV vancomycin. Dr. Edmondson called and notified of reaction. Telephone orders taken to d/c vanc and ordered Benadryl PRN. Pt aware and orders placed.
[2023-07-12] MEDS: diphenhydrAMINE 25 mg Capsule PO (20:12)
[2023-07-12] MEDS: piperacillin-tazobactam 3.375 GM in sodium chloride 0.9% (plus) 50 ML IV (20:13)
--- NOTE | 2023-07-12 21:56 | USCV_ITS ---
Tej Jeffry Age: 38 Gender: F : 1985 Exam Date: 07/12/2023 23:12 Ordering Phys: Mariano Catalan MD Technologist: SAURAV Exam Location[place] [facility] [place] Indication: dvt no erythema, no edema. s/p laparoscopic 4in ovarian cyst removal 07/10/23 HISTORY: dvt no erythema, no edema. s/p laparoscopic 4in ovarian cyst removal 07/10/23 PROCEDURES: Venous duplex imaging was performed in bilateral lower extremities. The following venous structures were evaluated: common femoral vein, profunda vein, proximal portion of the greater saphenous vein, superficial femoral vein, and the popliteal vein. In addition, the posterior tibial and peroneal veins were evaluated. Serial compression, augmentation maneuvers, and spectral Doppler flow evaluation were performed, which were normal. Bilaterally, the common femoral, superficial femoral, profunda femoral, popliteal, posterior tibial, greater saphenous veins, and the peroneal veins were identified and interrogated in the standard fashion. These veins were found to be easily compressible with spontaneous blood flow. No evidence of thrombus noted. CONCLUSIONS No evidence of right lower extremity DVT. No evidence of left lower extremity DVT. Casey Carter MD (Electronically Signed) Final Date: 13 July 2023 09:25 S
--- NOTE | 2023-07-12 21:58 | XRR_ITS ---
PROCEDURE INFORMATION: Exam: XR Chest Exam date and time: 07/12/2023 10:21 PM Age: 38 years old Clinical indication: Shortness of breath; Additional info: SOB TECHNIQUE: Imaging protocol: Radiologic exam of the chest. Views: 1 view. COMPARISON: 1. CR XR chest 1V portable [id number] 07/12/2023 12:[address] abdomen pelvis w con* [id number] 07/12/2023 10:42 AM FINDINGS: Lungs: Low lung volumes with modest streaky perihilar opacities similar to comparison. Negative for consolidation. Pleural spaces: Unremarkable. No pleural effusion. No pneumothorax. Heart/Mediastinum: Unremarkable. No cardiomegaly. Bones/joints: Unremarkable. Intraperitoneal space: Pneumoperitoneum. XR/XR chest 1V portable [id number] IMPRESSION: 1. No focal acute pulmonary disease. 2. Postoperative pneumoperitoneum redemonstrated.
--- NOTE | 2023-07-12 22:34 | CTR_ITS ---
PROCEDURE INFORMATION: Exam: CT Chest Without Contrast; Diagnostic Exam date and time: 07/13/2023 12:03 AM Age: 38 years old Clinical indication: Other: See below; Chest wall pain; Prior surgery; Surgery date: 3-7 days post-operative; Surgery type: Ovarian cyst Tuesday; Patient HX: Patient has RT posterior back pain- base of lung/sob; Additional info: SOB and pain TECHNIQUE: Imaging protocol: Diagnostic computed tomography of the chest without contrast. Radiation optimization: All CT scans at this facility use at least one of these dose optimization techniques: automated exposure control; mA and/or kV adjustment per patient size (includes targeted exams where dose is matched to clinical indication); or iterative reconstruction. COMPARISON: CR (CHEST, ) 07/12/2023 10:21 PM RADIATION DOSE METRICS: Total DLP (mGy-cm): 824 FINDINGS: Lungs: Right middle lobe and bilateral lower lobe volume loss changes with peribronchial opacities similar to the comparison imaging. Volume loss changes are seen in the dependent posterior lower lobes. Negative for central endobronchial obstruction. No bronchiectasis. No peripheral honeycombing. Pleural spaces: Trace pleural fluid bilaterally. Negative for pneumothorax. Heart: Unremarkable. No cardiomegaly. No pericardial effusion. Coronary arteries: Negative for coronary artery calcifications. Lymph nodes: Unremarkable. No enlarged lymph nodes. Vasculature: Unremarkable. No aortic aneurysm. Bones/joints: Unremarkable. No acute fracture. Soft tissues: Unremarkable. PROCEDURE INFORMATION: Exam: CT Abdomen And Pelvis Without Contrast Exam date and time: 07/13/2023 12:03 AM Age: 38 years old Clinical indication: Other: See below; Chest wall pain; Prior surgery; Surgery date: 3-7 days post-operative; Surgery type: Ovarian cyst Tuesday; Patient HX: Patient has RT posterior back pain- base of lung/sob; Additional info: SOB and pain TECHNIQUE: Imaging protocol: Computed tomography of the abdomen and pelvis without contrast. Radiation optimization: All CT scans at this facility use at least one of these dose optimization techniques: automated exposure control; mA and/or kV adjustment per patient size (includes targeted exams where dose is matched to clinical indication); or iterative reconstruction. COMPARISON: CT abdomen pelvis w con* [id number] 07/12/2023 10:42 AM RADIATION DOSE METRICS: Total DLP (mGy-cm): 824 FINDINGS: Liver: Normal. No mass. Gallbladder and bile ducts: Gallbladder is distended similar to prior. No definite inflammatory wall thickening. Negative for biliary dilation. Pancreas: Normal. No ductal dilation. Spleen: Normal. No splenomegaly. Adrenal glands: Normal. No mass. Kidneys and ureters: Normal. No hydronephrosis. Stomach and bowel: Mild severity diverticulosis coli. Negative for bowel obstruction. No definite inflammatory bowel thickening. Negative for pneumatosis intestinalis. Appendix: No evidence of appendicitis. Intraperitoneal space: Small volume scattered pneumoperitoneum redemonstrated. Small volume postoperative pelvic free fluid layering dependently is stable to mildly decreased in volume from the comparison. Vasculature: Unremarkable. No abdominal aortic aneurysm. Lymph nodes: Unremarkable. No enlarged lymph nodes. Urinary bladder: Unremarkable as visualized. Reproductive: Unremarkable as visualized. Bones/joints: Unremarkable. No acute fracture. Soft tissues: Small volume air in the ventral abdominal wall. CT/[place] [id number] IMPRESSION: 1. No significant changes in the lungs demonstrating bilateral atelectasis changes. 2. Trace pleural effusions. IMPRESSION: No significant changes in the abdomen or pelvis from recent comparison showing postoperative changes. No definite acute pathology visible.
[2023-07-12 22:39] LABS: ABG PCO2 33.5 mmHg (35-45); ABG PH Result 7.38 (7.35-7.45); Arterial Blood Gas Hematocrit 37.8 % (37-47); Base Excess ABG -4.6 mmol/L (-2.0-2.0); Blood Gas Sample Site Brachial, left; Blood Gas Sample Type Arterial; HCO3 ABG 19.8 mmol/L (22-26); Oxygen Device ROOM AIR; PO2 ABG 57.2 mmHg (80.0-100.0)
--- NOTE | 2023-07-12 23:58 | ECG_ITS ---
[facility] Test Date: 2023-07-12 Pat Name: Jeffry Burnham Department: Room: 254 Gender: Female Rn Cardiac Rehab: : 1985 Requested By: Mariano Catalan Order Number: [id number] Kary MD: Norma Bridges M.D. 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 [id number]
[2023-07-13] VITALS (23 sets, daily range): BP systolic 120–147; BP diastolic 81–99; PULSE 67–128; RESP 13–22; TEMP 36.4–37.6; O2SAT 88–100
[2023-07-13] MEDS: oxyCODONE-APAP 5-325 mg Tablet 1 TAB PO ×4 (00:59→19:45)
[2023-07-13 02:06] LABS: Basophils # 0.1 10^3/uL (0.0-0.1); Basophils % 0.5 %; Eosinophils # 0.1 10^3/uL (0.0-0.8); Eosinophils % 0.6 %; Hematocrit 36.4 % (36-47); Lymphocytes # 0.5 10^3/uL (0.8-4.8); Lymphocytes % 3.5 %; Mean Corpuscular HGB Conc 32.7 g/dL (30-55); Mean Corpuscular Volume 85.6 fl (85-98); Mean Platelet Volume 11.6 fL (7.4-10.4); Monocytes # 0.7 10^3/uL (0.2-0.9); Monocytes % 4.3 %; Neutrophils # 14.23 10^3/uL (1.8-7.7); Neutrophils % 90.8 %; Nucleated Red Blood Cells % 0 %; Platelet Count 165 10^3/cmm (157-399); Red Blood Count 4.25 10^6/uL (3.85-5.65); Red Cell Distribution Width 12.9 % (12.1-15.1); White Blood Count 15.65 10^3/uL (3.29-11.43)
[2023-07-13 02:27] LABS: Troponin(5th) Baseline < 6 ng/L (0-10)
[2023-07-13 02:29] LABS: D Dimer 5.23 ug/mLFEU (0-0.59)
[2023-07-13 02:43] LABS: Alanine Aminotransferase 11 U/L (0-33); Albumin Level 3.1 g/dL (3.5-5.2); Alkaline Phosphatase 96 U/L (35-105); Anion Gap 17.9 (5-19); Aspartate Amino Transferase 19 U/L (0-32); Blood Urea Nitrogen 31 mg/dL (6-20); Calcium 8.7 mg/dL (8.5-10.5); Carbon Dioxide 16 mmol/L (22-29); Chloride 103 mmol/L (98-107); Globulin 2.5 g/dL (1.3-4.6); Glomerular Filtration Rate 70.1 mL/min (90-130); Glucose 112 mg/dL (65-115); NT Pro B Type Natriuretic Pept 1353 pg/mL (0-125); Osmolality Calculated 283 mOsm/kg (285-295); Potassium 3.9 mmol/L (3.5-5.1); Sodium 133 mmol/L (136-145); Total Bilirubin 0.7 mg/dL (0.15-1.2); Total Protein 5.6 g/dL (6.6-8.7)
--- NOTE | 2023-07-13 03:35 | CTR_ITS ---
PROCEDURE INFORMATION: Exam: CTA Chest With Contrast Exam date and time: 07/13/2023 4:15 AM Age: 38 years old Clinical indication: Abnormal findings; Abnormal diagnostic tests; Elevated d-dimer; Dyspnea; Additional info: Sudden SOB, elevated d dimer, R/O pe TECHNIQUE: Imaging protocol: Computed tomographic angiography of the chest with contrast. Exam focused on the arteries. 3D rendering (Not supervised by radiologist): MIP and/or 3D reconstructed images were created by the technologist. Radiation optimization: All CT scans at this facility use at least one of these dose optimization techniques: automated exposure control; mA and/or kV adjustment per patient size (includes targeted exams where dose is matched to clinical indication); or iterative reconstruction. Contrast material: OMNI 350; Contrast volume: 80 ml; Contrast route: INTRAVENOUS (IV); COMPARISON: [place] [id number] 07/13/2023 12:03 AM RADIATION DOSE METRICS: Total DLP (mGy-cm): 412.71 FINDINGS: Pulmonary arteries: Normal. No pulmonary emboli. Aorta: Unremarkable. No aortic aneurysm. No aortic dissection. Lungs: Volume loss changes in the lower lungs bilaterally. Peribronchial opacities with crowding of the bronchovascular structures. Negative for central endobronchial obstruction. Negative for peripheral honeycombing. Pleural spaces: Unremarkable. No pneumothorax. No pleural effusion. Heart: Unremarkable. No cardiomegaly. No pericardial effusion. Mediastinal space: Unremarkable thoracic esophagus. Lymph nodes: Unremarkable. No enlarged lymph nodes. Intraperitoneal space: Pneumoperitoneum redemonstrated. Bones/joints: Unremarkable. No acute fracture. Soft tissues: Unremarkable. CT/CT angio chest PE protcl [id number] IMPRESSION: 1. Negative for pulmonary artery embolism. 2. No changes in the lungs demonstrating probable multifocal atelectasis. 3. Postoperative pneumoperitoneum redemonstrated.
[2023-07-13] MEDS: iohexol 350 mg/mL 500 mL Btl (per mL) IV (04:21)
[2023-07-13] MEDS: HYDROmorphone 1 mg/mL INJ 1 mL IVP ×5 (04:31→21:42)
[2023-07-13] MEDS: sodium chloride 0.9% 1,000 ML 75 ML IV (04:47)
[2023-07-13] MEDS: piperacillin-tazobactam 3.375 GM in sodium chloride 0.9% (plus) 50 ML IV ×3 (04:48→19:46)
[2023-07-13 04:59] LABS: Basophils # 0.1 10^3/uL (0.0-0.1); Basophils % 0.6 %; Eosinophils # 0.1 10^3/uL (0.0-0.8); Eosinophils % 0.6 %; Hematocrit 34.6 % (36-47); Lymphocytes # 0.8 10^3/uL (0.8-4.8); Lymphocytes % 4.9 %; Mean Corpuscular HGB Conc 33.5 g/dL (30-55); Mean Corpuscular Hemoglobin 28.6 pg (27-33); Mean Corpuscular Volume 85.4 fl (85-98); Monocytes # 0.7 10^3/uL (0.2-0.9); Monocytes % 4.3 %; Neutrophils # 13.72 10^3/uL (1.8-7.7); Neutrophils % 89.3 %; Nucleated Red Blood Cells % 0 %; Platelet Count 169 10^3/cmm (157-399); Red Blood Count 4.05 10^6/uL (3.85-5.65); Red Cell Distribution Width 12.9 % (12.1-15.1); White Blood Count 15.36 10^3/uL (3.29-11.43)
[2023-07-13 05:20] LABS: Troponin 5 2HR Delta 0.00001 ABS# (0-10)
[2023-07-13 05:27] LABS: Alanine Aminotransferase 11 U/L (0-33); Alkaline Phosphatase 92 U/L (35-105); Aspartate Amino Transferase 18 U/L (0-32); Blood Urea Nitrogen 27 mg/dL (6-20); Calcium 8.6 mg/dL (8.5-10.5); Carbon Dioxide 19 mmol/L (22-29); Chloride 105 mmol/L (98-107); Globulin 2.5 g/dL (1.3-4.6); Glomerular Filtration Rate 70.1 mL/min (90-130); Glucose 108 mg/dL (65-115); Magnesium 2.2 mg/dL (1.7-2.3); Osmolality Calculated 286 mOsm/kg (285-295); Sodium 135 mmol/L (136-145); Total Bilirubin 0.6 mg/dL (0.15-1.2); Total Protein 5.5 g/dL (6.6-8.7)
[2023-07-13] MEDS: pantoprazole DR 40 mg Tablet PO (08:40)
[2023-07-13] MEDS: metoprolol succinate ER (24 HR) 50 mg Tablet 25 MG PO (08:40)
[2023-07-13] MEDS: sennosides-docusate Tablet 1 TAB PO ×2 (08:40→16:58)
[2023-07-13 08:52] LABS: Troponin 5 6HR Delta 0.00001 ng/L (0-12)
--- NOTE | 2023-07-13 11:15 | P.PN_ITS ---
Subjective 2 Subjective: This morning patient is still complaining of pain below right scapula She is afebrile white count 15,000 CT scan is showing atelectasis CT abdomen pelvis shows postoperative changes, I did review CT chest and CT abdomen pelvis with Dr. Cardenas and general surgeon, they are in agreement with postoperative changes and atelectasis, Patient's mother was concerned that they might have to be transferred because she has not improved since surgery however patient is stating that she will discuss with her she is okay waiting 48 hours on current antibiotic regimen Her pain is disproportionate to the changes we are looking at the CT scan. This could be stretch of diaphragm and irritation of phrenic nerve called Evangelista 's sign Vitals/I&O/Wt Last Vital Signs Temp 98.3 F 07/13/23 08:00 Pulse 108 H 07/13/23 08:42 Resp 16 07/13/23 08:42 BP 140/95 07/13/23 08:00 Pulse Ox 96 07/13/23 08:42 O2 Del Method Room Air 07/13/23 08:42 O2 Flow Rate 2 07/13/23 08:00 07/12/23 07/13/23 07/13/23 22:59 06:59 14:59 Intake Total 890 / 1940 2009 3950 170 / 170 Balance 890 / 1940 2009 3950 170 / 170 Weight last 48 hrs Weight 83.053 kg Weight 80.739 kg Weight 70.307 kg Physical Exam 2 Narrative: Patient is walking ambulating without any significant discomfort She is on room air Afebrile Abdomen is soft No signs of peritonitis Hemodynamically stable Tachycardic related to pain . Mother at the bedside S1, S2 tachycardia GCS 15 Data 07/13/23 04:44 07/13/23 04:44 Micro: Microbiology 07/12/23 10:15 Urine Culture - Preliminary Urine,Clean Catch A&P Assessment and plan (1) Status post laparoscopy: (2) Tachycardia: (3) Acute kidney injury: (4) Leukocytosis: (5) Atelectasis: Plan Concern related to diaphragm stretch and phrenic nerve irritation She has leukocytosis there is a possibility for hidden infiltrate I do not suspect viscus perforation there is no free air under the diaphragm CT chest did not show any PE she does have significantly high D-dimer venous Doppler results are pending I will continue her on Zosyn and add vancomycin Cultures negative to date She is afebrile Tachycardia is related to her active pain For phrenic nerve irritation I will try baclofen and gabapentin Continue IV fluids Continue telemonitoring I did ensure patient and her mother that in case we see any signs of deterioration I will be happy to assist them to get her transferred to tertiary center patient is stating that she would like to discuss with her All questions were answered Spoke with Dr. Edmondson Discussed CT scan findings with pulmonology and general surgery Attestations 2 Medical Necessity Statement*: Continue medical management Diagnoses Status post laparoscopy Z98.890 Tachycardia R00.0 Acute kidney injury N17.9 Leukocytosis D72.829 Atelectasis J98.11
[2023-07-13 11:38] LABS: Erythrocyte Sedimentation Rate 66 mm/hr (0-15)
[2023-07-13 11:58] LABS: CA 125 39.3 U/mL (0-35); Cancer Antigen 19 9 22.24 U/mL (0-35)
[2023-07-13] MEDS: gabapentin 100 mg Capsule PO ×2 (12:00→16:58)
[2023-07-13] MEDS: lactulose oral liq 20 gm/30 mL UDC 10 GM PO (12:00)
[2023-07-13] MEDS: baclofen 10 mg Tablet PO ×2 (12:00→16:57)
--- NOTE | 2023-07-13 13:35 | P.PN_ITS ---
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 s/p laparoscopic right salpingo-oophorectomy July 09, 2023 presented to ER July 12, 2023 c/o right rib pain + nausea Had one episode of vomiting No fever, chills, cough, shortness of breath + flatus Voiding well Evaluation so far include CXR, CT of chest, CT of abdomen No evidence of pneumonia, pulmonary emboli, intra-abdominal injury Symptoms likely result of atelectasis in right lower lung base Vitals/I&O/Wt Last Vital Signs Temp 97.8 F 07/14/23 20:00 Pulse 114 H 07/14/23 20:00 Resp 18 07/14/23 20:08 BP 141/100 07/14/23 20:00 Pulse Ox 93 07/14/23 20:00 O2 Del Method Room Air 07/14/23 20:00 O2 Flow Rate 2 07/14/23 08:49 07/14/23 07/14/23 07/14/23 06:59 14:59 22:59 Intake Total 290 / 2110 350 / 350 290 / 640 Balance 290 / 2110 350 / 350 290 / 640 Weight last 48 hrs Weight 191 lb 6.4 oz Weight 183 lb 1.6 oz Physical Exam 2 Narrative: in moderate discomfort secondary to right rib pain Afebrile, VS normal Abd: soft, mild distension Nontender No rebound / guarding Laparoscopic wounds clean and dry, healing well Ext: nontender Data 07/14/23 05:18 07/14/23 05:18 Micro: Microbiology 07/12/23 10:15 Urine Culture - Final Urine,Clean Catch 07/12/23 14:05 Blood Culture - Preliminary Blood A&P Assessment and plan (1) Status post laparoscopy: s/p laparoscopic right salpingo-oophorectomy July 09, 2023 (2) Chest pain: Right rib pain Possible atelectasis / pneumonia Management per Hospitalist service Attestations 2 Medical Necessity Statement*: patient postop from laparoscopic right salpingo-oophorectomy July 09, 2023, admitted with right rib pain Coding Level of Care Code Acute Code for Chg Fwd Diagnoses Status post laparoscopy Z98.890 Chest pain R07.9 Time Spent (min) 20
[2023-07-13] MEDS: ipratropium-albuterol 3 mL Neb INHALATION ×2 (13:44→20:17)
[2023-07-14] VITALS (17 sets, daily range): BP systolic 125–147; BP diastolic 84–100; PULSE 89–118; RESP 15–22; TEMP 36.5–37.3; O2SAT 92–98
[2023-07-14] MEDS: oxyCODONE-APAP 5-325 mg Tablet 1 TAB PO (01:01)
[2023-07-14] MEDS: ipratropium-albuterol 3 mL Neb INHALATION ×2 (02:48→08:54)
[2023-07-14] MEDS: piperacillin-tazobactam 3.375 GM in sodium chloride 0.9% (plus) 50 ML IV ×3 (04:48→20:09)
[2023-07-14] MEDS: ondansetron 2 mg/ML SDV 2 mL 4 MG IVP (05:20)
[2023-07-14 05:32] LABS: Basophils # 0.1 10^3/uL (0.0-0.1); Basophils % 0.8 %; Eosinophils # 0.1 10^3/uL (0.0-0.8); Eosinophils % 1.1 %; Hematocrit 37.5 % (36-47); Lymphocytes # 1.2 10^3/uL (0.8-4.8); Lymphocytes % 11.4 %; Mean Corpuscular Hemoglobin 28.2 pg (27-33); Mean Platelet Volume 10.6 fL (7.4-10.4); Neutrophils # 7.77 10^3/uL (1.8-7.7); Nucleated Red Blood Cells % 0 %; Platelet Count 179 10^3/cmm (157-399); Red Blood Count 4.26 10^6/uL (3.85-5.65); Red Cell Distribution Width 13.2 % (12.1-15.1); White Blood Count 10.22 10^3/uL (3.29-11.43)
[2023-07-14 05:50] LABS: Alanine Aminotransferase 11 U/L (0-33); Albumin Level 2.9 g/dL (3.5-5.2); Alkaline Phosphatase 116 U/L (35-105); Anion Gap 15.3 (5-19); Aspartate Amino Transferase 18 U/L (0-32); Blood Urea Nitrogen 12 mg/dL (6-20); Calcium 8.9 mg/dL (8.5-10.5); Carbon Dioxide 21 mmol/L (22-29); Chloride 103 mmol/L (98-107); Globulin 3.6 g/dL (1.3-4.6); Glomerular Filtration Rate 93.6 mL/min (90-130); Glucose 113 mg/dL (65-115); Osmolality Calculated 283 mOsm/kg (285-295); Potassium 3.3 mmol/L (3.5-5.1); Sodium 136 mmol/L (136-145); Total Bilirubin 0.7 mg/dL (0.15-1.2); Total Protein 6.5 g/dL (6.6-8.7)
[2023-07-14] MEDS: HYDROmorphone 1 mg/mL INJ 1 mL IVP ×4 (05:55→20:08)
[2023-07-14 06:15] LABS: Procalcitonin 0.94 ng/mL (0-0.5)
[2023-07-14] MEDS: pantoprazole DR 40 mg Tablet PO (08:32)
[2023-07-14] MEDS: lactulose oral liq 20 gm/30 mL UDC 10 GM PO (08:32)
[2023-07-14] MEDS: baclofen 10 mg Tablet PO ×4 (08:33→20:09)
[2023-07-14] MEDS: metoprolol succinate ER (24 HR) 50 mg Tablet 25 MG PO (08:33)
[2023-07-14] MEDS: gabapentin 100 mg Capsule PO ×2 (08:33→16:21)
[2023-07-14] MEDS: sennosides-docusate Tablet 1 TAB PO ×2 (08:33→16:21)
--- NOTE | 2023-07-14 09:58 | PM.PN ---
Subjective Subjective: White count has improved Afebrile Tachycardia I will discontinue scheduled doses of albuterol she can get as needed Did discuss her CT scan findings again Patient gets metoprolol which I will schedule for twice a day regimen She is feeling slightly better as compared to yesterday White count has improved She does have phrenic nerve irritation from her laparoscopic recent procedure She is still constipated Given lactulose Vitals/I&O/Wt Last Vital Signs Temp 97.7 F 07/14/23 08:00 Pulse 118 H 07/14/23 08:58 Resp 18 07/14/23 08:49 BP 143/95 07/14/23 08:00 Pulse Ox 98 07/14/23 08:49 O2 Del Method Nasal Cannula 07/14/23 08:49 O2 Flow Rate 2 07/14/23 08:49 07/13/23 07/14/23 07/14/23 22:59 06:59 14:59 Intake Total 1410 / 1820 290 / 2110 110 / 110 Balance 1410 / 1820 290 / 2110 110 / 110 Weight last 48 hrs Weight 86.818 kg Weight 83.053 kg Weight 80.739 kg Physical Exam Narrative: Pleasant and cooperative Sitting in a recliner On 2 L She still gets pain on taking deep breaths Pleuritic pain Abdomen distended, bowel sounds sluggish GCS 15 Pleasant and cooperative Currently on room air Tachycardia On 2 L Data 07/14/23 05:18 07/14/23 05:18 Micro: Microbiology 07/12/23 14:05 Blood Culture - Preliminary Blood 07/12/23 10:15 Urine Culture - Preliminary Urine,Clean Catch A&P Assessment and plan (1) Status post laparoscopy: (2) Hypertension: (3) Tachycardia: (4) Acute kidney injury: (5) Leukocytosis: (6) Atelectasis: Plan Evangelista's sign Phrenic nerve diaphragmatic irritation I would continue her on Augmentin at the time of discharge for possible pulmonary infiltrate She is on baclofen, gabapentin She is still not experiencing regular bowel movement, given lactulose along senna S I did encourage patient to ambulate She is tolerating her diet now I do anticipate her symptoms will get better now onwards White count significantly improved Replenish potassium I would do not want to give her scheduled doses of her DuoNeb which can be used on as needed basis For tachycardia I have scheduled her metoprolol succinate twice a day Full code Regular diet DVT prophylaxis on board If patient gets better after bowel movement, she could be discharged later today versus tomorrow, spoke with Dr. 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
--- NOTE | 2023-07-14 10:38 | PC.CHAP ---
Pastoral Care Encounter/Spiritual Assessment Type of Contact [] Declined environmental advisor visit [] Patient/Family/Request visit [] Outpatient visit [] Follow-up visit [] Physician referral [] Code/Alert [x] Routine visit [] Staff referral [] Actively dying [] Patient sleeping [] Family support [] [] Out of room [] Palliative care [] [x] Receiving care in room [] Pre-surgical visit [] Trauma [] Long length of stay [] ICU visit [] Other: Relational/Emotional Strength [] Patient feels connected with others/family/visitors/staff [x] Distress [] Loneliness/isolation [] Abandonment Spirituality of Patient [x] Person of Priti [] Attends Pentecostalism of their Priti [x] Believes in Prayer [] Reads Bible or Mu-Ism materials [] There are Spiritual issues to be addressed 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 Interventions [x] Prayer [x] Active listening [x] Non-anxious presence [x] Spiritual/emotional support [] Crisis/trauma care [x] Spiritual counseling [] Bereavement support [] Provided bereavement packet [] Provided Bible/devotional materials [] Provided toy/stuffed animal, coloring book to patient or family member [] Provided Communion [] Anointing/[place] [] Salvation [x] Completed spiritual assessment [] Other: Impact on Illness or Injury [] Angry [] Fearful [] Anxious [] Often cries [] Exhaustion [] Unable to work [] Unable to attend latter-day [] Unable to walk/stand [] Unable to read [] Unable to drive [] Unable to eat/drink [] Unable to sleep [] Unable to be with family [] Patient intubated [] Other: Summary surgery tomor in pain checking for other health problems well be going home has a postive attitude Time spent with patient 10 mins
[2023-07-14] MEDS: potassium chloride ER 20 mEq Tablet 40 MEQ PO (10:52)
[2023-07-14] MEDS: enoxaparin 40 mg/0.4 mL Syringe SUBCUT (10:52)
[2023-07-14] MEDS: metoprolol succinate ER (24 HR) 50 mg Tablet PO (16:21)
--- NOTE | 2023-07-14 20:40 | P.PN_ITS ---
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: Interval history: Still c/o severe pain in right lower chest and back Now also has pain in lower abdomen Tolerating PO Voiding well Vitals/I&O/Wt Last Vital Signs Temp 97.8 F 07/14/23 20:00 Pulse 114 H 07/14/23 20:00 Resp 18 07/14/23 20:08 BP 141/100 07/14/23 20:00 Pulse Ox 93 07/14/23 20:00 O2 Del Method Room Air 07/14/23 20:00 O2 Flow Rate 2 07/14/23 08:49 07/14/23 07/14/23 07/14/23 06:59 14:59 22:59 Intake Total 290 / 2110 350 / 350 290 / 640 Balance 290 / 2110 350 / 350 290 / 640 Weight last 48 hrs Weight 191 lb 6.4 oz Weight 183 lb 1.6 oz Physical Exam 2 Narrative: In moderate distress due to pain Afebrile, VS normal Abd: soft, mild distension Nontender No rebound Laparoscopic wounds healing well Data 07/14/23 05:18 07/14/23 05:18 Micro: Microbiology 07/12/23 10:15 Urine Culture - Final Urine,Clean Catch 07/12/23 14:05 Blood Culture - Preliminary Blood A&P Assessment and plan (1) Status post laparoscopy: s/p laparoscopic right salpingo-oophorectomy July 09, 2023 Normal postoperative abdomen (2) Chest pain: Right rib pain Now with pain in lower abdomen Complaints of severe pain not consistent with laboratory and radiologic studies Continue management per Hospitalist service Plan transfer care to Hospitalist service Attestations 2 Medical Necessity Statement*: patient s/p laparoscopic right salpingo-oophorectomy July 09, 2023 with severe rib pain Coding Level of Care Code Acute Code for Chg Fwd Diagnoses Status post laparoscopy Z98.890 Chest pain R07.9 Time Spent (min) 20
[2023-07-14] MEDS: hyDROXYzine 25 mg Capsule PO (22:44)
[2023-07-15] VITALS (15 sets, daily range): BP systolic 122–137; BP diastolic 86–97; PULSE 90–120; RESP 16–19; TEMP 36.7–37.4; O2SAT 93–97
[2023-07-15] MEDS: oxyCODONE-APAP 5-325 mg Tablet 1 TAB PO ×3 (01:04→20:01)
[2023-07-15] MEDS: piperacillin-tazobactam 3.375 GM in sodium chloride 0.9% (plus) 50 ML IV ×2 (03:09→21:22)
[2023-07-15] MEDS: HYDROmorphone 1 mg/mL INJ 1 mL IVP ×2 (03:10→15:35)
[2023-07-15 05:35] LABS: Basophils # 0.1 10^3/uL (0.0-0.1); Basophils % 0.5 %; Eosinophils # 0.1 10^3/uL (0.0-0.8); Eosinophils % 0.5 %; Hematocrit 42.6 % (36-47); Lymphocytes # 1.2 10^3/uL (0.8-4.8); Lymphocytes % 8.1 %; Mean Corpuscular HGB Conc 33.1 g/dL (30-55); Mean Corpuscular Volume 84.7 fl (85-98); Mean Platelet Volume 10.4 fL (7.4-10.4); Monocytes # 1.8 10^3/uL (0.2-0.9); Monocytes % 11.5 %; Neutrophils % 77.2 %; Nucleated Red Blood Cells % 0 %; Platelet Count 256 10^3/cmm (157-399); Red Blood Count 5.03 10^6/uL (3.85-5.65); Red Cell Distribution Width 13.2 % (12.1-15.1); White Blood Count 15.28 10^3/uL (3.29-11.43)
[2023-07-15 05:53] LABS: Anion Gap 18.2 (5-19); Blood Urea Nitrogen 12 mg/dL (6-20); Calcium 8.9 mg/dL (8.5-10.5); Carbon Dioxide 20 mmol/L (22-29); Chloride 104 mmol/L (98-107); Glomerular Filtration Rate 111.9 mL/min (90-130); Glucose 130 mg/dL (65-115); Osmolality Calculated 288 mOsm/kg (285-295); Potassium 4.2 mmol/L (3.5-5.1); Sodium 138 mmol/L (136-145)
--- NOTE | 2023-07-15 06:17 | PC.NURSE ---
SHIFT SUMMARY Jeffry had a difficult night. She started the evening in the chair where she was in a significant amount of pain. Throughout the shift she received several doses of dilaudid and percocet, though these did little to help with her pain. At some points she was squirming and moaning due to the severity of the pain. Dr Ctaalan was contacted and he gave an order for a one time dose of vistaril in the hopes of perhaps appeasing her anxiety and thus controlling her pain, but it did little to help. She did pass two moderately sized bowel movements which were streaked with a small amount of blood, but her abdominal distention did not improve. About two hours after receiving the vistaril she requested pain medicine, so this typewriter assembler's orientee went to administer percocet. Jeffry then requested to have the dilaudid and percocet at the same time, to which she was educated on why it would be unsafe to receive those two medications together. Her mother, who attended her after midnight, was also educated about this and other topics, since she frequently questioned the doctor's orders and plans for treatment. The mother also expressed her dislike of Dr Edmondson, Dr Catalan, the antibiotics, and the treatment plan in place. Jeffry was finally able to fall asleep after receiving another dose of dilaudid at 0310, and is currently resting in bed peacefully with her mother at bedside.
[2023-07-15] MEDS: baclofen 10 mg Tablet PO ×4 (08:06→21:22)
[2023-07-15] MEDS: sennosides-docusate Tablet 1 TAB PO ×2 (08:07→17:42)
[2023-07-15] MEDS: pantoprazole DR 40 mg Tablet PO (08:07)
[2023-07-15] MEDS: metoprolol succinate ER (24 HR) 50 mg Tablet PO ×2 (08:07→17:42)
--- NOTE | 2023-07-15 09:41 | CTR_ITS ---
PROCEDURE INFORMATION: Exam: CT Chest Without Contrast; Diagnostic Exam date and time: 07/15/2023 10:29 AM Age: 38 years old Clinical indication: Abdominal pain; Other: Short of breath; Prior surgery; Surgery date: Post-operative (0-2 days); Surgery type: Ovary w/cyst removal; Additional info: Atelactasis, post op, cdiff? TECHNIQUE: Imaging protocol: Diagnostic computed tomography of the chest without contrast. Radiation optimization: All CT scans at this facility use at least one of these dose optimization techniques: automated exposure control; mA and/or kV adjustment per patient size (includes targeted exams where dose is matched to clinical indication); or iterative reconstruction. COMPARISON: CT angio chest PE protcl [id number] 07/13/2023 4:15 AM RADIATION DOSE METRICS: Total DLP (mGy-cm): 978.86 FINDINGS: Thyroid: The partially imaged bilateral thyroid lobes are unremarkable. Lungs: Lingular and subcarinal calcified pulmonary parenchymal granuloma. Bilateral posterior pulmonary, inferior right middle lobe partial passive atelectasis. Left lower lobe superior segment and medial basilar segment pulmonary subsegmental atelectasis. Pleural spaces: Minimal dependent left pleural effusion. Heart: No cardiomegaly. No pericardial effusion. Coronary arteries: No coronary artery calcifications. Lymph nodes: Left hilar granulomatous kimberli calcifications are present. Vasculature: Ligamentum arteriosum calcification, normal variant. Bones/joints: Moderate chronic T3, T4 and T5 vertebral body compression deformity, stable. Soft tissues: Unremarkable. PROCEDURE INFORMATION: Exam: CT Abdomen And Pelvis Without Contrast Exam date and time: 07/15/2023 10:29 AM Age: 38 years old Clinical indication: Abdominal pain; Other: Short of breath; Prior surgery; Surgery date: Post-operative (0-2 days); Surgery type: Ovary w/cyst removal; Additional info: Atelactasis, post op, cdiff? TECHNIQUE: Imaging protocol: Computed tomography of the abdomen and pelvis without contrast. Radiation optimization: All CT scans at this facility use at least one of these dose optimization techniques: automated exposure control; mA and/or kV adjustment per patient size (includes targeted exams where dose is matched to clinical indication); or iterative reconstruction. COMPARISON: [place] [id number] 07/13/2023 12:03 AM RADIATION DOSE METRICS: Total DLP (mGy-cm): 978.86 FINDINGS: Liver: Normal. No mass. Gallbladder and bile ducts: Excreted contrast in the gallbladder outlining intraluminal sludge. Pancreas: Normal. No ductal dilation. Spleen: Normal. No splenomegaly. Adrenal glands: Normal. No mass. Kidneys and ureters: New moderate right renal pelviectasis, mild abdominal hydroureter. Right mid renal anterolateral 2.4 mm calyceal calculus. Right renal 16 mm benign cyst. Stomach and bowel: Sigmoid colonic diverticula are present without evidence of diverticulitis. Appendix: The vermiform appendix is normal. Intraperitoneal space: Small anterior pneumoperitoneum, mildly improved. Moderate abdominal and pelvic ascites (15.9 Hounsfield units), mildly increased. Vasculature: Left pelvic calcified phleboliths. Lymph nodes: No enlarged lymph nodes. Urinary bladder: Unremarkable as visualized. Reproductive: Unremarkable as visualized. Bones/joints: Angular kyphosis of the sacrococcygeal junction consistent with remote injury. Soft tissues: Anterior left abdominal wall subcutaneous adipose emphysema consistent with prior injections. CT/[place] [id number] IMPRESSION: 1. Minimal dependent left pleural effusion. 2. Please see the abdomen/pelvis CT report of the same date for additional findings. IMPRESSION: 1. Small anterior pneumoperitoneum, mildly improved. This is presumed to be recent postoperative based on the given clinical history. 2. Moderate abdominal and pelvic ascites, mildly increased. 3. Diverticulosis. 4. New moderate right renal pelviectasis, mild abdominal hydroureter. No obstructing calculus identified. The etiology is not determined from the imaging. It is notable that the previously administered and excreted IV contrast does not currently appear in the peritoneal space (i.e. no specific evidence of ureteral injury). 5. Right renal calyceal lithiasis. 6. Right renal small benign cyst. No follow-up imaging is recommended. 7. Please see the CT chest report of the same date for additional findings. COMMENTS: Consistent with the [employer]'s Incidental Findings Committee white paper (J Am Lilibeth Radiol 2018): Any incidental renal lesion less than 1 cm or classified as too small to characterize, or any incidental cystic renal lesion characterized as simple-appearing, is likely benign. No follow-up imaging is recommended for these lesions per consensus recommendations based on imaging criteria.
--- NOTE | 2023-07-15 09:51 | P.PN_ITS ---
Subjective 2 Subjective: White count 15,000 Patient is stating that she has had 3-4 episodes of loose stools With first episode she noticed mild bleeding as well She is stating that she was diagnosed with colitis few years ago but stating that she never had biopsy done or colonoscopy it was done on CT abdomen pelvis No history of inflammatory bowel disease in the family or GI cancer At this point considering prolonged symptoms of abdominal discomfort persistent leukocytosis 15,000 my suspicion will stay high for C. difficile colitis I will repeat another chest abdomen pelvis CT scan and start patient on p.o. vancomycin and send a sample for C. difficile I will change her antibiotics discontinue Zosyn and put her on doxycycline and metronidazole Patient was seen twice Patient is stating that she is not interested in getting transferred to [facility] at this point . I did check her records there is no previous records listed in her folder I do not have any records of her previous history of colitis in the EMR as well I will request gallbladder ultrasound as well Vitals/I&O/Wt Last Vital Signs Temp 98.1 F 07/15/23 08:00 Pulse 98 07/15/23 08:36 Resp 18 07/15/23 08:36 BP 131/97 07/15/23 08:00 Pulse Ox 95 07/15/23 08:36 O2 Del Method Room Air 07/15/23 08:36 O2 Flow Rate 2 07/14/23 08:49 07/14/23 07/15/23 07/15/23 22:59 06:59 14:59 Intake Total 290 / 640 170 / 810 50 / 50 Balance 290 / 640 170 / 810 50 / 50 Weight last 48 hrs Weight 82.1 kg Weight 86.818 kg Physical Exam 2 Narrative: Patient is sitting comfortably in her bed at the time of evaluation She is not on oxygen She is doing well on room air Hematemesis Afebrile Tachycardia improved She ate her breakfast as well Abdomen has distention with a lot of flatus on auscultation No rebound tenderness or signs of peritonitis Family is at the bedside Data 07/15/23 05:23 07/15/23 05:23 Micro: Microbiology 07/12/23 10:15 Urine Culture - Final Urine,Clean Catch 07/12/23 14:05 Blood Culture - Preliminary Blood A&P Assessment and plan (1) Diarrhea: (2) Atelectasis: (3) Leukocytosis: (4) Acute kidney injury: (5) Tachycardia: (6) Status post laparoscopy: Plan Recurrent loose stools Patient is stating that she also noted some blood with first episode No history of inflammatory bowel disease She never had colonoscopy No history of/family history of colon/GI cancer I will request C. difficile panel request CT abdomen pelvis and gallbladder ultrasound Change her antibiotics to doxycycline and p.o. vancomycin and IV metronidazole Discontinue Zosyn Persistent leukocytosis Rule out C. difficile No fever Pain -12/27 Tachycardia has improved I will continue IV fluids Attestations 2 Medical Necessity Statement*: Continue medical management Diagnoses Diarrhea R19.7 Atelectasis J98.11 Leukocytosis D72.829 Acute kidney injury N17.9 Tachycardia R00.0 Status post laparoscopy Z98.890
--- NOTE | 2023-07-15 09:57 | US_ITS ---
WS: [id number] RIGHT UPPER QUADRANT ULTRASOUND HISTORY: RUQ PAIN COMPARISON: CT 07/15/2023 Liver: 17.2 cm in length. Normal size liver and echogenicity. No bile duct dilatation or mass. Portal Vein: Normal hepatopetal flow with monophasic waveform. Gallbladder: Gallbladder is mildly hydropic with low level echoes and sludge. No stones identified. N o wall thickening. No pericholecystic fluid. CBD: 0.6 cm Pancreas: Normal size and echogenicity. Right kidney: 11.4 cm in length. Normal size and echogenicity. No hydronephrosis or mass. Small RIGHT renal cyst measures 9 x 8 x 8 mm. Aorta and IVC: Unremarkable abdominal aorta and IVC. There is a small amount of ascites in the RIGHT upper quadrant. Ascites was recently described by CT also. IMPRESSION: 1. Mildly hydropic gallbladder with low-level echoes consistent with sludge. No stones or pericholec ystic fluid or wall thickening identified. Mildly distended gallbladder may be due to prolonged fasti ng state or cholecystitis. 2. Small amount of ascites adjacent to the liver.
[2023-07-15] MEDS: vancomycin 125 mg Capsule PO ×4 (10:09→21:22)
[2023-07-15] MEDS: enoxaparin 40 mg/0.4 mL Syringe SUBCUT (10:09)
[2023-07-15] MEDS: gabapentin 100 mg Capsule PO ×2 (10:09→17:41)
[2023-07-15 10:22] LABS: Erythrocyte Sedimentation Rate 71 mm/hr (0-15)
[2023-07-15 10:33] LABS: C Reactive Protein 147.8 mg/L (0.0-4.9)
[2023-07-15] MEDS: metroNIDAZOLE IV 500 MG/100 ML PREMIX 100 MG IV ×2 (10:49→17:43)
[2023-07-15] MEDS: sodium chloride 0.9% 1,000 ML 75 ML IV (10:49)
[2023-07-15 10:56] LABS: D Dimer >= 20.00 ug/mLFEU (0-0.59)
[2023-07-15] MEDS: doxycycline 100 mg Tablet PO (17:41)
[2023-07-15 18:38] LABS: Reflex FDPQ test REFLEX FDP QUEST TES
[2023-07-15 18:57] LABS: INR 1.12 (0.8-1.2); Partial Thromboplastin Time 21.6 SECONDS (23.9-36.7)
[2023-07-15 18:58] LABS: Fibrinogen 799 mg/dL (174-498)
[2023-07-15 19:02] LABS: Alanine Aminotransferase 10 U/L (0-33); Albumin Level 3.1 g/dL (3.5-5.2); Alkaline Phosphatase 150 U/L (35-105); Anion Gap 15.5 (5-19); Aspartate Amino Transferase 15 U/L (0-32); Blood Urea Nitrogen 10 mg/dL (6-20); C Reactive Protein 111.9 mg/L (0.0-4.9); Calcium 8.7 mg/dL (8.5-10.5); Carbon Dioxide 24 mmol/L (22-29); Chloride 99 mmol/L (98-107); Globulin 3.4 g/dL (1.3-4.6); Glomerular Filtration Rate 111.9 mL/min (90-130); Glucose 114 mg/dL (65-115); Lipase 134 U/L (13-60); Osmolality Calculated 280 mOsm/kg (285-295); Potassium 3.5 mmol/L (3.5-5.1); Sodium 135 mmol/L (136-145); Total Bilirubin 0.6 mg/dL (0.15-1.2); Total Protein 6.5 g/dL (6.6-8.7)
[2023-07-15 19:14] LABS: D Dimer >= 20.00 ug/mLFEU (0-0.59)
--- NOTE | 2023-07-15 19:39 | CTR_ITS ---
PROCEDURE INFORMATION: Exam: CT Abdomen And Pelvis Without And With Contrast Exam date and time: 07/15/2023 7:47 PM Age: 38 years old Clinical indication: Pain and abnormal findings; Abnormal lab test; Elevated wbc; Other: Ascites; Abdominal pain; Generalized; Prior surgery; Surgery date: 3-7 days post-operative; Surgery type: RT salpingo-oophorectomy 07/09/2023; Patient HX: Persistent abd pain with ascities and pneumo peritoneum since RT slapingo-oophorectomy for 6cm ovarian cyst on 07/09/2023. Worsening leukocystosis. ; Additional info: Ureterogram CT, need delayed cphase portal vein and ureter TECHNIQUE: Imaging protocol: Computed tomography of the abdomen and pelvis without and with contrast. Three phases including precontrast, vascular phase and excretory phases Radiation optimization: All CT scans at this facility use at least one of these dose optimization techniques: automated exposure control; mA and/or kV adjustment per patient size (includes targeted exams where dose is matched to clinical indication); or iterative reconstruction. Contrast material: OMNI 350; Contrast volume: 125 ml; Contrast route: INTRAVENOUS (IV); COM[place]ISON: [place] [id number] 07/15/2023 10:29 AM RADIATION DOSE METRICS: Total DLP (mGy-cm): 1812.83 FINDINGS: Lungs: Bibasilar dependent and subsegmental atelectasis. Pleural spaces: Small left pleural effusion. Liver: Normal. No mass. Gallbladder and bile ducts: Normal. No calcified stones. No ductal dilation. Pancreas: Normal. No ductal dilation. Spleen: Normal. No splenomegaly. Adrenal glands: Normal. No mass. 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 Excretory phase CT demonstrates bilateral single patent ureters. Nearly all of the ureters are opacified in the ureters appear intact . The urinary bladder is filled normally with contrast. There is no extravasated ureteral or bladder contrast. Stomach and bowel: Mildly increased gas and fluid throughout the small bowel. There is also mild small bowel wall thickening and the overall pattern is consistent with inflammation/ileus. Appendix: No evidence of appendicitis. Intraperitoneal space: There is small to moderate free fluid and free air in the upper abdomen consistent with the recent surgical procedure. Vasculature: Unremarkable. No abdominal aortic aneurysm. Lymph nodes: Several mildly enlarged right hilar lymph nodes, most likely reactive. Urinary bladder: See Kidneys and ureters finding. Reproductive: Left ovary contains follicles and a dominant 4 cm cyst. The right ovary is not seen. Bones/joints: Unremarkable. No acute fracture. Soft tissues: Unremarkable. Other findings: Within the pelvis there are organized rim enhancing fluid collections both anterior and posterior to the uterus measuring 11 cm and [address]/CT abdomen pelvis wo/w [id number] IMPRESSION: 1. No evidence of ureteral injury. No extravasated contrast. 2. Low-density free fluid in the upper abdomen and organized free fluid within the pelvis. This is most likely residual postoperative fluid containing blood products. However in the setting of leukocytosis, secondary infection remains a possibility and clinical/laboratory correlation is needed. 3. Small bowel inflammatory changes most consistent with ileus. 4. Other chronic findings as described
--- NOTE | 2023-07-15 19:56 | W.PM.EVENTAC ---
Event Note Event Note: I Took an initiative to call [facility] To discuss ct and pelvis findings, I did not get a call today regarding any findings Patient was evaluated again in the evening I do see ascites and free fluid In the pelvis I have consulted [facility] regarding my concern related to subcutaneous abscess below umbilicus added linezolid jose rogers spoke w [facility] getting another ct w contrast to rule out ureteral injury spoke with the patient as well to update her regarding my concerns please note pt refused iv vancomycin
[2023-07-15] MEDS: iohexol 350 mg/mL 500 mL Btl (per mL) IV (20:16)
[2023-07-15] MEDS: linezolid premix 600 MG/300 ML PREMIX 300 MG IV (21:21)
[2023-07-15 21:22] LABS: Hepatitis A Antibody IgM Non-Reactive (Nonreactive); Hepatitis B Core AB, Total Non-Reactive (Nonreactive); Hepatitis B Surface AB < 3.5 (11.5-1000); Hepatitis B Surface Antigen Non-Reactive (Nonreactive); Hepatitis C Virus Antibody Non-Reactive (Nonreactive)
[2023-07-15] MEDS: ALPRAZolam 0.5 mg Tablet PO (21:42)
[2023-07-15 22:47] LABS: Eosinophil Urine No Eosinophils Seen; Urine Eosinophil Count 0 (0-0)
[2023-07-16] VITALS (12 sets, daily range): BP systolic 125–140; BP diastolic 76–96; PULSE 95–115; RESP 14–20; TEMP 36.4–37.1; O2SAT 94–97; BMI 30.1
[2023-07-16] MEDS: metroNIDAZOLE IV 500 MG/100 ML PREMIX 100 MG IV ×3 (01:17→17:32)
[2023-07-16] MEDS: HYDROmorphone 1 mg/mL INJ 1 mL IVP (01:33)
[2023-07-16] MEDS: oxyCODONE-APAP 5-325 mg Tablet 1 TAB PO ×2 (04:02→17:24)
[2023-07-16] MEDS: piperacillin-tazobactam 3.375 GM in sodium chloride 0.9% (plus) 50 ML IV ×2 (04:04→14:11)
[2023-07-16] MEDS: sodium chloride 0.9% 1,000 ML 75 ML IV (04:06)
[2023-07-16 04:52] LABS: Basophils # 0.1 10^3/uL (0.0-0.1); Basophils % 0.6 %; Eosinophils # 0.2 10^3/uL (0.0-0.8); Eosinophils % 1.4 %; Hematocrit 44.3 % (36-47); Lymphocytes # 1.7 10^3/uL (0.8-4.8); Mean Corpuscular HGB Conc 31.8 g/dL (30-55); Mean Corpuscular Hemoglobin 27.7 pg (27-33); Mean Platelet Volume 10.7 fL (7.4-10.4); Monocytes # 1.7 10^3/uL (0.2-0.9); Monocytes % 11.8 %; Neutrophils # 9.98 10^3/uL (1.8-7.7); Neutrophils % 69.6 %; Nucleated Red Blood Cells % 0 %; Platelet Count 310 10^3/cmm (157-399); Red Blood Count 5.09 10^6/uL (3.85-5.65); White Blood Count 14.33 10^3/uL (3.29-11.43)
[2023-07-16 05:12] LABS: Alanine Aminotransferase 10 U/L (0-33); Albumin Level 2.9 g/dL (3.5-5.2); Alkaline Phosphatase 112 U/L (35-105); Anion Gap 16.6 (5-19); Aspartate Amino Transferase 16 U/L (0-32); Blood Urea Nitrogen 8 mg/dL (6-20); Calcium 8.5 mg/dL (8.5-10.5); Carbon Dioxide 23 mmol/L (22-29); Chloride 103 mmol/L (98-107); Globulin 3.8 g/dL (1.3-4.6); Glomerular Filtration Rate 111.9 mL/min (90-130); Glucose 93 mg/dL (65-115); Osmolality Calculated 286 mOsm/kg (285-295); Potassium 3.6 mmol/L (3.5-5.1); Sodium 139 mmol/L (136-145); Total Bilirubin 0.7 mg/dL (0.15-1.2); Total Protein 6.7 g/dL (6.6-8.7)
[2023-07-16 05:14] LABS: Procalcitonin 0.35 ng/mL (0-0.5)
[2023-07-16] MEDS: ondansetron 2 mg/ML SDV 2 mL 4 MG IVP ×2 (07:31→21:23)
[2023-07-16] MEDS: sennosides-docusate Tablet 1 TAB PO ×2 (09:36→17:24)
[2023-07-16] MEDS: metoprolol succinate ER (24 HR) 50 mg Tablet PO ×2 (09:37→17:24)
[2023-07-16] MEDS: linezolid premix 600 MG/300 ML PREMIX 300 MG IV (09:37)
[2023-07-16] MEDS: pantoprazole DR 40 mg Tablet PO (09:37)
[2023-07-16] MEDS: vancomycin 125 mg Capsule PO ×4 (10:27→20:48)
--- NOTE | 2023-07-16 10:27 | P.PN_ITS ---
Subjective 2 Subjective: Patient is on linezolid, Zosyn and metronidazole CT panel pending Ileus noted on the CT abdomen pelvis No evidence of ureteral injury No spillage of contrast noted Dr. Graves has evaluated the patient as well Jejunal swelling noted Enteritis with ileus Dr. Graves has recommended Reglan White count improving No signs of DIC, no fever Normal creatinine and liver enzymes CRP trending down Lipase is high no evidence of pancreatitis on CT pelvis Vitals/I&O/Wt Last Vital Signs Temp 98.5 F 07/16/23 08:00 Pulse 96 07/16/23 09:10 Resp 16 07/16/23 09:10 BP 138/90 07/16/23 08:00 Pulse Ox 94 07/16/23 09:10 O2 Del Method Room Air 07/16/23 09:10 O2 Flow Rate 2 07/14/23 08:49 07/15/23 07/16/23 07/16/23 22:59 06:59 14:59 Intake Total 400 / 550 1091.0 / 1641.0 50 / 50 Output Total 100 / 450 600 / 1050 Balance 300 / 100 491.0 / 591.0 50 / 50 Weight last 48 hrs Weight 82.1 kg Weight 82.1 kg Physical Exam 2 Narrative: Pleasant cooperative GCS 15 Abdomen has no signs of peritonitis, bowel sounds hyperactive Abdomen is distended Mother at bedside Patient is in distress because of pain Currently on room air Hemodynamic stable S1, S2 Data 07/16/23 04:06 07/16/23 04:06 Micro: Microbiology 07/15/23 21:10 Stool Lactoferrin - Final Stool A&P Assessment and plan (1) Status post laparoscopy: (2) Hypertension: (3) Tachycardia: (4) Abnormal findings on diagnostic imaging of gallbladder: (5) Acute kidney injury: (6) Leukocytosis: (7) Enteritis: (8) Atelectasis: (9) Ileus: Plan Persistent leukocytosis: With addition of linezolid and metronidazole leukocytosis trending down Ileus and enteritis noted on CT abdomen pelvis No concern for ureteral injury at this point Creatinine normal No fever Dr. Graves consulted to evaluate her for gallbladder sludge He is recommending Reglan, we might change her diet to brat or GI soft if her nausea worsens Our threshold to put NG tube in case if any recurrent nausea vomiting will stay low She has had multiple CT scans which are not showing any acute pathological change Patient and mother both had a lot of questions which were answered to their satisfaction today Dr. Graves evaluate the patient as well I will discontinue gabapentin and baclofen Awaiting C. difficile panel No bowel movement since yesterday Albumin 2.9 CRP trending down Procalcitonin normal I have discontinued her fluids today she was getting bloated a lot of fluid noted around the liver as well, clinically does not show any sign of fluid overload Regular diet DVT prophylaxis Lovenox Attestations 2 Medical Necessity Statement*: Continue medical management Diagnoses Status post laparoscopy Z98.890 Hypertension I10 Tachycardia R00.0 Abnormal findings on diagnostic imaging of gallbladder R93.2 Acute kidney injury N17.9 Leukocytosis D72.829 Enteritis K52.9 Atelectasis J98.11 Ileus K56.7
[2023-07-16] MEDS: enoxaparin 40 mg/0.4 mL Syringe SUBCUT (10:30)
[2023-07-16] MEDS: metoclopramide 5 mg/mL SDV 2 mL IVP ×3 (10:43→20:50)
--- NOTE | 2023-07-16 14:07 | P.TS_ITS ---
Transfer Summary Providers Date of Admission: 07/14/23 20:40 Date of Discharge/Transfer: 07/16/23 Attending Provider at Admission: Roman Edmondson MD Attending Provider at Transfer: Roman Edmondson MD Primary Care Provider: Roman Edmondson MD Transfer Plans: Anticipated date of transfer: 07/16/23 . Diagnoses at Discharge Discharge Diagnosis (1) Status post laparoscopy: Status: Acute Permanent problem details: for 6cm ovarian cyst with severe abdominal pain and right hydronephrosis/hydroureter without acute kidney injury evident (2) Hypertension: Status: Chronic (3) Tachycardia: Status: Chronic Permanent problem details: on beta darwin (4) Abnormal findings on diagnostic imaging of gallbladder: Status: Acute Permanent problem details: hydropic fluid distended gallbladder noted on CT imaging 06/2023 (5) Acute kidney injury: Status: Acute (6) Leukocytosis: Status: Acute (7) Enteritis: Status: Acute (8) Atelectasis: Status: Acute (9) Ileus: Status: Acute Reason for Visit Reason for Visit abd pain Hospital Course Hospital Course 38-year-old female who had laparoscopic right ovarian complex cyst removal status post right salpingo-oophorectomy as per pathology benign cyst, it was done on 07/[address] Edmondson. Patient got admitted on for worsening of her pain she did not notice any pain or fever at home. During hospitalization she had persistent leukocytosis of 15,000, multiple CT scans were done to make sure there was no ureteral injury bowel obstruction, there is no spillage of contrast there is no ureteral injury evidence, I spoke with [facility] regarding recent CT abdomen pelvis which was done with contrast with delayed flow through ureter and portal vein, there is enteritis, ileus and fluid collection in the pelvis especially anterior and posterior to the uterus, however radiologist has not commented on possible abscess formation my concern is related to encapsulation of fluid with the persistent white count which will need CT-guided drainage. She is currently on linezolid, metronidazole and Zosyn. She remained afebrile no sign of sepsis. Her pain remains around 6-7 on consistent basis, she is gett ing Reglan for ileus. She was evaluated by RETURNS CLERK and general surgery during hospitalization. Multiple family meetings were conducted. I did brief them about all the CT scan results. Despite all the antibiotics she has not improved significantly, I have sent C. difficile panel, it takes about 72 hours for the results to come back she was empirically put on p.o. vancomycin regimen as well. At this point my concern is related to possible abscess/phlegmon formation with fluid collection in the pelvis, we do not have interventional radiology over the weekend or gastroenterology service. Patient will be transferred with stable hemodynamics to tertiary center for above-mentioned procedure Gallbladder ultrasound did not show cholecystitis it is showing sludge, Armstrong sign is negative White count 15,000, left shift, no fever, BMP is unremarkable, creatinine 0.6, bicarb 23, AST ALT 16 and 10 respectively, alkaline phosphatase 112. CRP trending down from 147 to 111 ESR around 70 Procalcitonin 0.35 Patient had 1 episode of loose stool with mild bleeding, I did speak with the patient and her family if it happens again she will need colonoscopy with biopsy to rule out inflammatory bowel disease, she does have diverticulosis as well but with recurrent episode she will definitely need biopsy to rule out IBD. I have spoken with the patient, her mother and her is also present today We did multiple CT scans of abdomen and pelvis, I did not receive any notification from [employer] regarding any acute pathological findings however I have voluntarily been calling [employer] to discuss CT abdomen pelvis findings, there were some inconsistent readings on CT abdomen pelvis regarding her ureter however on recent CT abdomen pelvis there is no hydroureter identified, no kidney stone identified but radiologist did reveal concern for encapsulated fluid which could be an developing abscess. Physical Exam Narrative: Pleasant cooperative Abdomen is bloated distended bowel sounds present hyperactive No signs of peritonitis No guarding or rigidity She is able to ambulate Afebrile Pleasant cooperative Laparoscopic scars are healing TS Data Studies Completed and Pending Pending at discharge Category Date Time Status Blood Cultures ([facility]) Routine Lab 07/12/23 14:05 Results CMP [Comprehensive Metabolic Panel] AM [facility] Lab 07/17/23 04:00 Ordered Clostridium Difficile PCR Routine Lab 07/15/23 21:10 Received Complete Blood Count w/Auto AM LAB[facility] Lab 07/17/23 04:00 Ordered Fibrinogen Degradation Product Routine Lab 07/15/23 18:38 Received Stool Culture - Enteric [Salmonella / Shigella / Campy] Lab 07/15/23 21:10 Received Routine Completed Studies During Hospitalization Category Date Time Status CT abdomen pelvis w con* [id number] Stat Cat Scan 07/12/23 09:[address] abdomen pelvis wo/w [id number] Stat Cat Scan 07/15/23 19:[address] angio chest PE protcl [id number] Stat Cat Scan 07/13/23 03:[address] chest abdomen pelvis [place] [id number] Cat Scan 07/15/23 09:41 Completed ] Routine CT chest abdomen pelvis [[place] [id number] Cat Scan 07/12/23 22:34 Completed ] Stat CXRP [XR chest 1V portable [id number]] Stat Exams 07/12/23 12:16 Completed XR chest 1V portable [id number] Routine Exams 07/12/23 21:58 [place] [id number] Routine Ultrasound 07/12/23 21:56 Completed US gall bladder [id number] Routine Ultrasound 07/15/23 09:57 Completed Laboratory Last Values WBC 14.33 10^3/uL (3.29-11.43) H 07/16/23 04:06 RBC 5.09 10^6/uL (3.85-5.65) 07/16/23 04:06 Hgb 14.10 g/dL (11.27-16.99) 07/16/23 04:06 Hct 44.3 % (36-47) 07/16/23 04:06 MCV 87.0 fl (85-98) 07/16/23 04:06 MCH 27.7 pg (27-33) 07/16/23 04:06 MCHC 31.8 g/dL (30-55) 07/16/23 04:06 RDW 13.0 % (12.1-15.1) 07/16/23 04:06 Plt Count 310 10^3/cmm (157-399) 07/16/23 04:06 MPV 10.7 fL (7.4-10.4) H 07/16/23 04:06 Neut % (Auto) 69.6 % 07/16/23 04:06 Lymph % (Auto) 12.0 % 07/16/23 04:06 Benzie % (Auto) 11.8 % 07/16/23 04:06 Eos % (Auto) 1.4 % 07/16/23 04:06 Baso % (Auto) 0.6 % 07/16/23 04:06 Neut # (Auto) 9.98 10^3/uL (1.8-7.7) H 07/16/23 04:06 Lymph # (Auto) 1.7 10^3/uL (0.8-4.8) 07/16/23 04:06 Benzie # (Auto) 1.7 10^3/uL (0.2-0.9) H 07/16/23 04:06 Eos # (Auto) 0.2 10^3/uL (0.0-0.8) 07/16/23 04:06 Baso # (Auto) 0.1 10^3/uL (0.0-0.1) 07/16/23 04:06 Nucleated RBC % (auto) 0 % 07/16/23 04:06 Nucleated RBCs # 0.0 /100WBC 07/16/23 04:06 ESR 71 mm/hr (0-15) H 07/15/23 05:23 PT 14.80 SECONDS (12.1-14.9) 07/15/23 18:14 INR 1.12 (0.8-1.2) 07/15/23 18:14 APTT 21.6 SECONDS (23.9-36.7) L 07/15/23 18:14 Fibrinogen 799 mg/dL (174-498) H 07/15/23 18:14 D-Dimer >= 20.00 ug/mLFEU (0-0.59) H 07/15/23 18:14 Specimen Type Arterial 07/12/23 21:58 Sample Site Brachial, left 07/12/23 21:58 ABG pH 7.38 (7.35-7.45) 07/12/23 21:58 ABG pCO2 33.5 mmHg (35-45) L 07/12/23 21:58 ABG pO2 57.2 mmHg (80.0-100.0) L 07/12/23 21:58 ABG HCO3 19.8 mmol/L (22-26) L 07/12/23 21:58 ABG Base Excess -4.6 mmol/L (-2.0-2.0) L 07/12/23 21:58 Valdez Test N/a 07/12/23 21:58 Hematocrit 37.8 % (37-47) 07/12/23 21:58 O2 Delivery Device Room air 07/12/23 21:58 Maxillofacial Surgeon ID [email or web address] 07/12/23 21:58 Sodium 139 mmol/L (136-145) 07/16/23 04:06 Potassium 3.6 mmol/L (3.5-5.1) 07/16/23 04:06 Chloride 103 mmol/L (98-107) 07/16/23 04:06 Carbon Dioxide 23 mmol/L (22-29) 07/16/23 04:06 Anion Gap 16.6 (5-19) 07/16/23 04:06 BUN 8 mg/dL (6-20) 07/16/23 04:06 Creatinine 0.6 mg/dL (0.5-0.9) 07/16/23 04:06 GFR Calculation 111.9 mL/min (90-130) 07/16/23 04:06 Glucose 93 mg/dL (65-115) 07/16/23 04:06 Calculated Osmolality 286 mOsm/kg (285-295) 07/16/23 04:06 Lactic Acid 1.0 mmol/L (0.5-2.2) 07/12/23 14:05 Calcium 8.5 mg/dL (8.5-10.5) 07/16/23 04:06 Phosphorus 3.0 mg/dL (2.5-4.5) 07/13/23 04:44 Magnesium 2.0 mg/dL (1.7-2.3) 07/16/23 04:06 Total Bilirubin 0.7 mg/dL (0.15-1.2) 07/16/23 04:06 AST 16 U/L (0-32) 07/16/23 04:06 ALT 10 U/L (0-33) 07/16/23 04:06 Alkaline Phosphatase 112 U/L (35-105) H 07/16/23 04:06 Troponin T Baseline < 6 ng/L (0-10) 07/13/23 02:01 Troponin T 120 Minute 6.00 ng/L (0-10) 07/13/23 04:44 Delta Troponin T 0.45561 ABS# (0-10) 07/13/23 04:44 Troponin T Hi Sens 6Hr 6.00 ng/L (0-10) 07/13/23 08:17 Troponin T Hi Sens 6Hr Delta 0.83631 ng/L (0-12) 07/13/23 08:17 C-Reactive Protein 111.9 mg/L (0.0-4.9) H 07/15/23 18:14 NT-Pro-B Natriuret Pep 1353 pg/mL (0-125) H 07/13/23 02:01 Total Protein 6.7 g/dL (6.6-8.7) 07/16/23 04:06 Albumin 2.9 g/dL (3.5-5.2) L 07/16/23 04:06 Globulin 3.8 g/dL (1.3-4.6) 07/16/23 04:06 Lipase 134 U/L (13-60) H 07/15/23 18:14 CA 19-9 Antigen 22.24 U/mL (0-35) 07/13/23 04:44 CA 125 Antigen 39.3 U/mL (0-35) H 07/13/23 04:44 Procalcitonin 0.35 ng/mL (0-0.5) 07/16/23 04:06 Urine Color Dark yellow (Yellow) 07/12/23 10:15 Urine Appearance Sl hazy (CLEAR) A 07/12/23 10:15 Urine pH 5 (5-7) 07/12/23 10:15 Ur Specific Rheems 1.020 (1.005-1.030) 07/12/23 10:15 Urine Protein Trace (Negative) 07/12/23 10:15 Urine Glucose (UA) Norm (Normal) 07/12/23 10:15 Urine Ketones Negative (Negative) 07/12/23 10:15 Urine Blood 3+ (Negative) H 07/12/23 10:15 Urine Nitrate Negative (Negative) 07/12/23 10:15 Urine Bilirubin Neg (Negative) 07/12/23 10:15 Urine Urobilinogen Norm mg/dL (Negative) 07/12/23 10:15 Ur Leukocyte Esterase Negative (Negative) 07/12/23 10:15 Urine RBC 5-10 /hpf (0-2) H 07/12/23 10:15 Urine WBC 15-25 /hpf (0-5) H 07/12/23 10:15 Ur Eosinophil Smear 0 (0-0) 07/15/23 21:00 Ur Squamous Epith Cells 0-4 /hpf (0-5) H 07/12/23 10:15 Ur Transition Epith Cell 0-4 /hpf 07/12/23 10:15 Amorphous Sediment Trace /hpf 07/12/23 10:15 Urine Bacteria 1+ /hpf (NONE) H 07/12/23 10:15 Fine Granular Casts 0-4 /lpf H 07/12/23 10:15 RBC Casts 0-4 /lpf 07/12/23 10:15 Other Casts Wbc cast 15-25 /lpf 07/12/23 10:15 Urine Mucus 1+ /hpf 07/12/23 10:15 Urine Eosinophils No eosinophils seen 07/15/23 21:00 Hepatitis A IgM Ab Non-reactive (Nonreactive) 07/15/23 18:14 Hep Bs Antigen Non-reactive (Nonreactive) 07/15/23 18:14 Hep Bs Antibody < 3.5 (11.5-1000) L 07/15/23 18:14 Hep B Core Total Ab Non-reactive (Nonreactive) 07/15/23 18:14 Hepatitis C Antibody Non-reactive (Nonreactive) 07/15/23 18:14 Radiology Impressions Chest X-Ray 07/12/23 21:58 IMPRESSION: 1. No focal acute pulmonary disease. 2. Postoperative pneumoperitoneum redemonstrated. Chest CTA 07/13/23 03:35 IMPRESSION: 1. Negative for pulmonary artery embolism. 2. No changes in the lungs demonstrating probable multifocal atelectasis. 3. Postoperative pneumoperitoneum redemonstrated. Chest/Abdomen/Pelvis CT 07/15/23 09:41 IMPRESSION: 1. Minimal dependent left pleural effusion. 2. Please see the abdomen/pelvis CT report of the same date for additional findings. IMPRESSION: 1. Small anterior pneumoperitoneum, mildly improved. This is presumed to be recent postoperative based on the given clinical history. 2. Moderate abdominal and pelvic ascites, mildly increased. 3. Diverticulosis. 4. New moderate right renal pelviectasis, mild abdominal hydroureter. No obstructing calculus identified. The etiology is not determined from the imaging. It is notable that the previously administered and excreted IV contrast does not currently appear in the peritoneal space (i.e. no specific evidence of ureteral injury). 5. Right renal calyceal lithiasis. 6. Right renal small benign cyst. No follow-up imaging is recommended. 7. Please see the CT chest report of the same date for additional findings. COMMENTS: Consistent with the [employer]'s Incidental Findings Committee white paper (J Am Lilibeth Radiol 2018): Any incidental renal lesion less than 1 cm or classified as too small to characterize, or any incidental cystic renal lesion characterized as simple-appearing, is likely benign. No follow-up imaging is recommended for these lesions per consensus recommendations based on imaging criteria. ADDENDUM: 07/15/231941 Per report, the patient has an elevated white blood cell count. The ordering clinician requested an addendum on this CT scan. The original interpreting radiologist is unavailable. COMPARISON: [place] [id number] 07/13/2023 12:03 AM There is mild right hydronephrosis and proximal hydroureter to the level of the mid pelvis. The ureter beyond this area is not visualized due to adjacent free fluid and soft tissues. No obstructing urinary stone. There is increasing low-density ascites and mesenteric edema compared with the previous CT scan. Possible ureteral injury is limited due to lack of administration of contrast. Repeat CT scan of the abdomen/pelvis with imaging during both the portal venous and excretory phases is recommended for further evaluation. There is a persistent fluid collection with an air-fluid level in the anterior abdomen just below the anterior abdominal wall extending inferiorly from the level of the umbilicus. This is overall stable in size measuring 13.8 x 2.8 x 7.0 cm (series 11, image 27 and series 5, image 68). Findings are suspicious for an intra-abdominal abscess. Addended results were discussed with HALEIGH Calvillo on 07/15/2023 at 7:40 PM [employer]. Abdomen/Pelvis CT 07/15/23 19:39 IMPRESSION: 1. No evidence of ureteral injury. No extravasated contrast. 2. Low-density free fluid in the upper abdomen and organized free fluid within the pelvis. This is most likely residual postoperative fluid containing blood products. However in the setting of leukocytosis, secondary infection remains a possibility and clinical/laboratory correlation is needed. 3. Small bowel inflammatory changes most consistent with ileus. 4. Other chronic findings as described Recent Clincial Data Last Vital Signs Temp 98.1 F 07/16/23 12:00 Pulse 104 H 07/16/23 12:00 Resp 14 01/27/24 12:00 BP 127/76 07/16/23 12:00 Pulse Ox 95 07/16/23 12:00 O2 Del Method Room Air 07/16/23 09:10 O2 Flow Rate 2 07/14/23 08:49 Vital Signs Temp Pulse Resp BP Pulse Ox O2 Del Method 07/16/23 12:00 98.1 F 104 H 14 127/76 95 07/16/23 09:10 96 16 94 Room Air 07/16/23 08:00 98.5 F 95 14 138/90 95 07/16/23 06:00 99 07/16/23 04:02 16 97 07/16/23 04:00 97.6 F 115 H 18 132/94 94 Room Air Intake & Output/Weight 07/14/23 07/15/23 07/16/23 07/17/23 06:59 06:59 06:59 06:59 Intake Total 2110 / 2110 810 / 810 1641.0 / 1641.0 450 / 450 Output Total 1050 / 1050 Balance 2110 / 2110 810 / 810 591.0 / 591.0 450 / 450 Weight 86.818 kg 82.1 kg 82.1 kg Vitals Last Vital Signs Temp 98.1 F 07/16/23 12:00 Pulse 104 H 07/16/23 12:00 Resp 14 07/16/23 12:00 BP 127/76 07/16/23 12:00 Pulse Ox 95 07/16/23 12:00 O2 Del Method Room Air 07/16/23 09:10 O2 Flow Rate 2 07/14/23 08:49 TS Medications Medications Acetaminophen (Acetaminophen 325 Mg Tablet) 650 mg PO Q6H PRN PRN Reason: Mild/Mod Pain Or Temp >/= 101 Albuterol/Ipratropium (Ipratropium-Albuterol 3 Ml Neb) 3 ml INHALATION Q6H PRN PRN Reason: SHORTNESS OF BREATH Last Admin: 07/13/23 13:44 Dose: 3 ml Albuterol/Ipratropium (Ipratropium-Albuterol 3 Ml Neb) 3 ml INHALATION Q6H.RESP PRN PRN Reason: sob Alprazolam (Alprazolam 0.5 Mg Tablet) 0.5 mg PO BID PRN PRN Reason: ANXIETY Last Admin: 07/15/23 21:42 Dose: 0.5 mg Baclofen (Baclofen 10 Mg Tablet) 10 mg PO QID [facility] Last Admin: 07/15/23 21:22 Dose: 10 mg Diphenhydramine HCl (Diphenhydramine 25 Mg Capsule) 25 mg PO Q6H PRN PRN Reason: ITCHING Last Admin: 07/12/23 20:12 Dose: 25 mg Enoxaparin Sodium (Enoxaparin 40 Mg/0.4 Ml Syringe) 40 mg SUBCUT Q24H [facility] Last Admin: 07/16/23 10:30 Dose: 40 mg Gabapentin (Gabapentin 100 Mg Capsule) 100 mg PO BID [facility] Last Admin: 07/15/23 17:41 Dose: 100 mg Hydromorphone HCl (Hydromorphone 1 Mg/Ml Inj 1 Ml) 1 mg IVP Q4H PRN PRN Reason: Mod to Sev pain 2nd/if Vomitin Last Admin: 07/16/23 01:33 Dose: 1 mg Sodium Chloride (Sodium Chloride 0.9%) 1,000 mls @ 75 mls/hr IV .[id number] [facility] Last Admin: 07/16/23 04:06 Dose: 75 mls/hr Metronidazole (Flagyl Iv) 500 mg in 100 mls @ 100 mls/hr IV Q8H [facility]; Protocol Last Infusion: 07/16/23 11:35 Dose: Infused Piperacillin Sod/Tazobactam (Sod 3.375 gm/ Sodium Chloride) 50 mls @ 12.5 mls/hr IV Q8H [facility]; Protocol Last Infusion: 07/16/23 09:05 Dose: Infused Linezolid (Zyvox Premix) 600 mg in 300 mls @ 300 mls/hr IV Q12H [facility]; Protocol Last Infusion: 07/16/23 11:35 Dose: Infused Metoclopramide HCl (Metoclopramide 5 Mg/Ml Sdv 2 Ml) 5 mg IVP Q6H [facility] Last Admin: 07/16/23 10:43 Dose: 5 mg Metoprolol Succinate (Metoprolol Succinate Er (24 Hr) 50 Mg Tablet) 50 mg PO BID [facility] Last Admin: 07/16/23 09:37 Dose: 50 mg Naloxone HCl (Naloxone 0.4 Mg/Ml Sdv) 0.1 mg IVP Q2M PRN PRN Reason: RESPIRATORY RATE < 8/MIN Ondansetron HCl (Ondansetron 2 Mg/Ml Sdv 2 Ml) 4 mg IVP Q6H PRN PRN Reason: NAUSEA AND VOMITING Last Admin: 07/16/23 07:31 Dose: 4 mg Oxycodone/Acetaminophen (Oxycodone-Apap 5-325 Mg Tablet) 1 tab PO Q6H PRN PRN Reason: Mod to Severe pain 1st Last Admin: 07/16/23 04:02 Dose: 1 tab Pantoprazole Sodium (Pantoprazole Dr 40 Mg Tablet) 40 mg PO DAILY [facility] Last Admin: 07/16/23 09:37 Dose: 40 mg Senna/Docusate Sodium (Sennosides-Docusate Tablet) 1 tab PO BID [facility] Last Admin: 07/16/23 09:36 Dose: 1 tab Vancomycin HCl (Vancomycin 125 Mg Capsule) 125 mg PO QID [facility] Last Admin: 07/16/23 12:58 Dose: 125 mg Discontinued Medications Albuterol/Ipratropium (Ipratropium-Albuterol 3 Ml Neb) 3 ml INHALATION Q6H.RESP [facility] Last Admin: 07/14/23 08:54 Dose: 3 ml Azithromycin (Azithromycin 250 Mg Tablet) 500 mg PO DAILY [facility]; Protocol Last Admin: 07/14/23 19:22 Dose: Not Given Bisacodyl (Bisacodyl 5 Mg Tablet) 10 mg PO NOW ONE Stop: 07/12/23 16:13 Last Admin: 07/12/23 17:16 Dose: 10 mg Bisacodyl (Bisacodyl 10 Mg Supp) 10 mg MN DAILY PRN PRN Reason: constipation after other medications Calcium Carbonate (Calcium Carbonate 500 Mg Chew Tablet) 1,000 mg PO Q4H PRN PRN Reason: DYSPEPSI Doxycycline Monohydrate (Doxycycline 100 Mg Tablet) 100 mg PO BID [facility]; Protocol Last Admin: 07/15/23 19:58 Dose: Not Given Doxycycline Monohydrate (Doxycycline 100 Mg Tablet) 100 mg PO BID [facility]; Protocol Last Admin: 07/15/23 17:41 Dose: 100 mg Furosemide (Furosemide 10 Mg/Ml Sdv 2ml) 20 mg IVP ONCE ONE Stop: 07/16/23 13:31 Hydromorphone HCl (Hydromorphone 1 Mg/Ml Inj 1 Ml) 1 mg IVP ONCE ONE Stop: 07/12/23 11:49 Last Admin: 07/12/23 12:05 Dose: 1 mg Hydroxyzine Pamoate (Hydroxyzine 25 Mg Capsule) 25 mg PO ONCE ONE Stop: 07/14/23 22:17 Last Admin: 07/14/23 22:44 Dose: 25 mg Sodium Chloride (Sodium Chloride 0.9%) 1,000 mls @ 999 mls/hr IV .Q1H1M ONE Stop: 07/12/23 11:52 Last Infusion: 07/12/23 13:23 Dose: Infused Azithromycin 500 mg/ Sodium (Chloride) 250 mls @ 250 mls/hr IV ONCE ONE; Protocol Stop: 07/12/23 14:14 Last Infusion: 07/12/23 15:21 Dose: Infused Ceftriaxone Sodium 1,000 mg/ (Sodium Chloride) 50 mls @ 100 mls/hr IV ONCE ONE; Protocol Stop: 07/12/23 13:44 Last Infusion: 07/12/23 14:48 Dose: Infused Sodium Chloride (Sodium Chloride 0.9%) 1,000 mls @ 75 mls/hr IV .[id number] [facility] Stop: 07/13/23 15:42 Last Admin: 07/13/23 19:06 Dose: Not Given Piperacillin Sod/Tazobactam (Sod 3.375 gm/ Sodium Chloride) 50 mls @ 12.5 mls/hr IV Q8H [facility]; Protocol Last Infusion: 07/15/23 07:40 Dose: Infused Levofloxacin/Dextrose (Levaquin-D5w) 750 mg in 150 mls @ 100 mls/hr IV ONCE ONE; Protocol Stop: 07/12/23 17:52 Last Infusion: 07/12/23 19:01 Dose: Infused Vancomycin/PEG/NADA/Lysine/Water (Vancocin) 1,250 mg in 250 mls @ 250 mls/hr IV Q36H [facility] Last Infusion: 07/12/23 19:57 Dose: Infused Potassium Chloride/Sodium Chloride (Sodium Chlor 0.9% + Kcl 20 Meq) 20 meq in 1,000 mls @ 125 mls/hr IV .Q8H [facility] Last Admin: 07/13/23 19:06 Dose: Not Given Sodium Chloride (Sodium Chloride 0.9%) 1,000 mls @ 75 mls/hr IV .[id number] [facility] Last Infusion: 07/13/23 19:07 Dose: Infused Vancomycin/PEG/NADA/Lysine/Water (Vancocin) 1,250 mg in 250 mls @ 250 mls/hr IV Q12H [facility] Last Admin: 07/13/23 19:07 Dose: Not Given Iohexol (Iohexol 350 Mg/Ml 500 Ml Btl (Per Ml)) 0 ml IV ONCE ONE Stop: 07/12/23 10:48 Last Admin: 07/12/23 10:47 Dose: 100 ml Iohexol (Iohexol 350 Mg/Ml 500 Ml Btl (Per Ml)) 0 ml IV ONCE ONE Stop: 07/13/23 04:22 Last Admin: 07/13/23 04:21 Dose: 80 ml Iohexol (Iohexol 350 Mg/Ml 500 Ml Btl (Per Ml)) 0 ml IV ONCE ONE Stop: 07/15/23 20:17 Last Admin: 07/15/23 20:16 Dose: 125 ml Lactulose (Lactulose Oral Liq 20 Gm/30 Ml Udc) 10 gm PO DAILY PRN PRN Reason: CONSTIPATION Last Admin: 07/13/23 12:00 Dose: 10 gm Lactulose (Lactulose Oral Liq 20 Gm/30 Ml Udc) 10 gm PO ONCE ONE Stop: 07/14/23 07:58 Last Admin: 07/14/23 08:32 Dose: 10 gm Metoprolol Succinate (Metoprolol Succinate Er (24 Hr) 50 Mg Tablet) 25 mg PO DAILY [facility] Last Admin: 07/14/23 08:33 Dose: 25 mg Morphine Sulfate (Morphine 4 Mg/Ml Sdv 1 Ml) 4 mg IVP ONCE ONE Stop: 07/12/23 10:30 Last Admin: 07/12/23 10:33 Dose: 4 mg Ondansetron HCl (Ondansetron 2 Mg/Ml Sdv 2 Ml) 4 mg IVP ONCE ONE Stop: 07/12/23 10:30 Last Admin: 07/12/23 10:33 Dose: 4 mg Pantoprazole Sodium (Pantoprazole 40 Mg Sdv) 40 mg IVP Q24H [facility] Stop: 07/12/23 16:16 Last Admin: 07/12/23 17:18 Dose: 40 mg Potassium Chloride (Potassium Chloride Er 20 Meq Tablet) 40 meq PO ONCE ONE Stop: 07/14/23 10:00 Last Admin: 07/14/23 10:52 Dose: 40 meq Allergies clindamycin Allergy (Verified 07/12/23 09:26) unknown -MYCINS Allergy (Uncoded 07/12/23 16:35) Unknown Home Medications hydrocodone 5 mg-acetaminophen 325 mg tablet 1 tab PO Q6H PRN pain #14 tabs 07/09/23 [Rx Confirmed 07/12/23] oxycodone-acetaminophen 5 mg-325 mg tablet (Percocet) 1 tab PO Q8H PRN pain #30 tabs 07/10/23 [Rx Confirmed 07/12/23] metoprolol succinate 50 mg tablet,extended release 24 hr 50 mg PO BID 07/12/23 [History Confirmed 07/12/23] Discharge Plan Discharge Condition: Stable Prescriptions: New amoxicillin-pot clavulanate 875-125 mg tablet 1 tab PO BID Qty: 10 0RF Continued oxycodone-acetaminophen [Percocet] 5-325 mg tablet 1 tab PO Q8H PRN (Reason: pain) Qty: 30 0RF hydrocodone-acetaminophen 5-325 mg tablet 1 tab PO Q6H PRN (Reason: pain) Qty: 14 0RF metoprolol succinate 50 mg tablet extended release 24 hr 50 mg PO BID Referrals: Roman Edmondson MD [Primary Care Provider] - 7-10 days Patient Instructions: Opioid Safety Transfer Attestations Time Spent in Transfer Care: greater than 30 min Quality Metrics Clinical Quality Measures [ No reported AMI, CVA or VTE this stay] Coding Level of Care Code Acute Code for Chg Fwd Diagnoses Status post laparoscopy Z98.890 Hypertension I10 Tachycardia R00.0 Abnormal findings on diagnostic imaging of gallbladder R93.2 Acute kidney injury N17.9 Leukocytosis D72.829 Enteritis K52.9 Atelectasis J98.11 Ileus K56.7
[2023-07-16] MEDS: FUROsemide 10 mg/mL SDV 2mL 20 MG IVP (14:11)
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
--- NOTE | 2023-07-16 20:35 | PC.NURSE ---
Spoke to Anibal at [facility] who states that it will be close to 10 pm before he will be able to get here to get the patient.
--- NOTE | 2023-07-17 00:19 | PC.NURSE ---
Patient sitting up in chair with mother at bedside when [facility] arrived. Patient transferred self to EMS stretcher. All belongings were gathered and taken with patient and/or mother. Patient's chart was given to EMS to be transferred to [facility] in [place], [place].
[2023-07-17 00:23] VITALS: BP 140/92; PULSE 100; RESP 19; TEMP 36.7; O2SAT 96
[2023-07-18 15:24] LABS: Clostridium Difficile PCR NOT DETECTED (NOT DETECTED)
[2023-07-21 08:40] LABS: Fibrinogen Degradation Product 80 mcg/mL (LESS THAN 5)
== END 2023-07-16 22:30 | disposition short-term general hospital (02) | DRG 948 ==
LOC: ER 13:50 → MEDSURG 18:06
PROVIDERS: Family Medicine; Hospitalist; Internal Medicine; Admitting Provider Obstetrics & Gynecology; Emergency Provider Emergency Medicine; PCP Obstetrics & Gynecology; Visit Provider Obstetrics & Gynecology
DX: G89.18 Other acute postprocedural pain (principal); N17.9 Acute kidney failure, unspecified; J98.11 Atelectasis; K56.7 Ileus, unspecified; K82.1 Hydrops of gallbladder; I10 Essential (primary) hypertension; R00.0 Tachycardia, unspecified; G58.8 Other specified mononeuropathies; K59.00 Constipation, unspecified; K52.9 Noninfective gastroenteritis and colitis, unspecified; Z90.721 Acquired absence of ovaries, unilateral
CPT/HCPCS: 36415; 36600; 71045; 71250; 71275; 74176; 74177; 74178; 76705; 80048; 80053; 81001; 82803; 83605; 83630; 83690; 83735; 83880; 84100; 84145; 84484; 85025; 85362; 85378; 85384; 85610; 85651; 85730; 85999; 86140; 86301; 86304; 86705; 86706; 86709; 86803; 87040; 87045; 87086; 87340; 87427; 87449; 87493; 93005; 93970; 94640; 94664; 96372; C9113; G0378; J0456; J0696; J1170; J1650; J1940; J1956; J2020; J2270; J2405; J2543; J2765; J3370; J3490; J7030; J7050; Q9967